=== PATIENT | female | born 1935 | race Caucasian/White ===

== ENCOUNTER 2016-11-11 14:46 | Observation (INO) | payer MEDICARE ==
[2016-11-11] MEDS ORDERED: ONDANSETRON 4 MG/2ML 2 ML VIAL ONE ×2 (15:18→18:33)
--- NOTE | 2016-11-11 16:22 | RAD ---
SHOULDER-RIGHT 2 OR MORE VIEWS History: Fall. Comparison: None. Findings: 3 views of the right humerus were performed demonstrating a comminuted fracture of the proximal right humeral metaphysis. There appears to be a transverse component as well as a mildly displaced greater tuberosity component. The glenohumeral alignment appears to remain appropriate. The shaft of the humerus is slightly angulated in a lateral direction in relationship to the humeral head component. Postsurgical changes are seen within the right axilla. The included right lung field is within expected. Impression: 1. A comminuted, mildly angulated fracture of the proximal right humerus with a mildly displaced greater tuberosity component.
--- NOTE | 2016-11-11 16:24 | RAD ---
HIP - RIGHT 2 VW + AP PELVIS HISTORY: Fall. COMPARISONS: None. FINDINGS: An AP view of the pelvis was performed with AP and frog-leg lateral views of the right hip demonstrating grossly intact osseous structures. The hip joint spaces are symmetric and are relatively well-maintained. The osseous pelvis is appropriate. The sacrum and sacroiliac joints are within expected. Mild atherosclerotic vascular calcification is seen. IMPRESSION: 1. Atherosclerotic vascular calcification. 2. Otherwise negative views of the pelvis and right hip with no definitive fracture visualized.
[2016-11-11] MEDS ORDERED: MORPHINE SULFATE 4 MG/ML SYRINGE ONE (18:33)
[2016-11-11 19:03] LABS: ABSOLUTE NEUTROPHIL COUNT 6.1 K/mm3 (1.8-7.7); BASO # 0.1 K/mm3 (0.0-0.2); BASO % 0.6 % (0.2-1.0); EOS # 0.1 (0.0-0.5); EOS % 0.8 % (0.9-2.9); HEMATOCRIT 42.3 % (37.0-47.0); HEMOGLOBIN 13.5 gm/l (12.0-16.0); IMM NEUT% 0.5 % (0-1); LYMPH # 1.1 (1.0-4.8); LYMPH % 14.1 % (15-45); MEAN CORPUSCULAR HEMOGLOBIN 28.7 pg (27.0-31.0); MEAN CORPUSCULAR HGB CONC 31.9 g/dl (33.0-37.0); MEAN PLATELET VOLUME 12.4 fl (7.4-10.4); MONO # 0.4 (0.0-0.8); MONO % 4.9 % (4-12); NEUT % 79.1 % (43-75); PLATELET COUNT 126 K/mm3 (130-400); RED CELL DISTRIBUTION WIDTH 12.3 % (11.5-14.5)
[2016-11-11 19:16] LABS: ALB/GLOB RATIO 1.3 (>1.0); ALBUMIN 3.9 gm/dL (3.5-5.7); CALCIUM 9.4 mg/dL (8.6-10.3)
[2016-11-11] MEDS ORDERED: PNEUMOCOCCAL 23-VAL P-SAC VAC 0.5 ML VIAL IM V ONE (19:35)
[2016-11-11 19:45] VITALS: BMI 38.0
[2016-11-11] MEDS ORDERED: BISACODYL 5 MG TABLET.EC PO PRN (21:34)
[2016-11-11] MEDS ORDERED: BISACODYL 10 MG SUP PR PRN (21:34)
[2016-11-11] MEDS ORDERED: SODIUM CHLORIDE 0.9% 100 ML IV PRN (21:34)
[2016-11-11] MEDS ORDERED: BLISTEX LIPSTICK 1 EACH TP PRN (21:34)
[2016-11-11] MEDS ORDERED: MAGNESIUM HYDROXIDE 30 ML UDCUP PO PRN (21:34)
[2016-11-11] MEDS ORDERED: MENTHOL/CETYLPYRD 1 EACH LOZENGE PO PRN (21:34)
[2016-11-11] MEDS ORDERED: ACETAMINOPHEN 325 MG TABLET PO PRN (21:34)
[2016-11-11] MEDS ORDERED: ONDANSETRON 4 MG/2ML 2 ML VIAL IV PRN (21:36)
[2016-11-11] MEDS: INSULIN ASPART (DOSE) 100 UNITS/1 ML SUB-Q PRN (22:36)
[2016-11-11] MEDS: PANTOPRAZOLE SODIUM 40 MG VIAL IV SCH (22:37)
[2016-11-11] MEDS: KETOROLAC TROMETHAMINE 15 MG/ML VIAL IV PRN (22:38)
[2016-11-12] MEDS: MORPHINE SULFATE 2 MG/ML SYRINGE IV PRN ×4 (00:10→17:39)
--- NOTE | 2016-11-12 08:05 | HP ---
Chantal Andersen [id number] DATE OF ADMISSION: 11/11/2016 CHIEF COMPLAINT: Right humeral fracture. HISTORY OF PRESENT ILLNESS: The patient is an 81-year-old female with a history of Alzheimer's who fell today fracturing her right proximal humerus. Family indicates patient is unable to be cared for at their home anymore at this time as emergency room was not able to get her up to walk, so hospitalist service requested to admit for consideration for placement. Daughter reports that she had gotten the patient up to the bathroom and she had closed the door and then had fallen. Her daughter was able to attend to her immediately, so she was not laying on the floor a long time. She had arm pain, but no other significant pains. PAST MEDICAL HISTORY: Remarkable for Mullins's palsy, history of chronic renal insufficiency is listed although, her creatinine is 1.1 with an estimated GFR of 48 suggesting around a stage III chronic kidney disease, history of coronary artery disease with balloon angioplasty a number of years ago, history of dementia, diabetes mellitus type 2, history of ductal breast cancer, status post lumpectomy and sentinel lymph node biopsy, dyslipidemia, hypertension, macular degeneration, and osteoporosis. She has had previous history of paroxysmal supraventricular tachycardia, and a previous history of thrombocytopenia, and carpal tunnel surgery. 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 ALLERGIES: No known drug allergies are listed, but on further review HER FAMILY THINKS SHE MAY BE ALLERGIC TO SULFA WHICH IS SUGGESTED IN SOME OLD RECORDS. MEDICATIONS: 1. Lorazepam 0.5 mg by mouth twice daily as needed although, daughter indicates they only give it to her at bedtime. 2. Wellbutrin SR 100 mg at bedtime. 3. Metformin 500 mg one half by mouth daily. 4. Melatonin 5 mg two by mouth at bedtime. 5. Glyburide 5 mg daily. 6. Lisinopril 20 mg daily. 7. Aspirin 81 mg daily. 8. Centrum Silver daily. 9. Metoprolol tartrate 100 mg by mouth twice daily. SOCIAL HISTORY: She lives at home with her . They have been 65 years. Two kids although, son is . Daughter previously worked at [employer]. No smoking. No alcohol. No particular yarsanism preference. She has a dog named Bertha. FAMILY HISTORY: Noncontributory. REVIEW OF SYSTEMS: Eyes: She wears glasses. Ears are okay. Nose is okay. Mouth is okay. She does have dentures. Neck: No complaints. Breathing is okay. No heart complaints. She did angioplasty about 18 years ago. Stomach is okay. No constipation problems. No diarrhea. She does take a vegetable laxative. She does have urinary incontinence if she waits to long, so her daughters are using Depends. Legs have been okay. Arms have been okay. No fractures. Skin: She has had some skin irritation in the skin folds, so she has used what sounds like clotrimazole and [place]. Memory has decreased consistent with dementia and she is do not resuscitate. PHYSICAL EXAMINATION: GENERAL: Nontoxic demented female who is pleasant. VITAL SIGNS: Through the emergency room 157/81, heart rate 66, respirations 18, 97.8 temperature, 92% saturation on room air. HEENT: Head is normocephalic, atraumatic. Eyes unremarkable. Left side of face has some mild palsy still noted. The right side shows some very well healed post Mohs surgery changes. Eyes are normal. Ears are normal. Nose is normal. Mouth has dentures. LUNGS: Clear to auscultation bilaterally. HEART: Regular rate and rhythm without murmur. ABDOMEN: Soft, nontender, nondistended, but patient seems quite uncomfortable as she is attempting to stop me from examining her abdomen and she attempts to move her broken arm when doing this. EXTREMITIES: Right arm is a sling, but she has disassembled it. Legs are unremarkable. No edema noted. No ulceration noted on the feet. Onychomycosis and slight flaking is noted on the feet. GENITOURINARY: Deferred. NEURO: Patient has some facial asymmetry noted related to Mullins's palsy, but no other focal deficits other than poor memory. LABORATORY: White count 7.7, hemoglobin 13.5, platelets 126. Sodium 132, potassium 4.1, chloride 98, CO2 24, BUN 15, creatinine 1.1, glucose 292. LFT's normal. Calcium 9.4. DIAGNOSTIC: Shoulder, fracture of the proximal right humerus. Hip and pelvis, no acute changes. Vascular calcification seen. ASSESSMENT AND PLAN: 1. We will follow with the right humeral fracture. Reviewed with Dr. Neumann. he would recommend a sling for her, however, patient's dementia will be a significant factor in this as she has disassembled the sling. 2. Dementia, Alzheimer's type. Anticipate need for placement if she is unable to be cared for at home. 3. Incontinence. Continue brief's. 4. Placement, physical therapy and occupational therapy, and appreciate rn medicare work. 5. Do not resuscitate status. Discussed with daughter today. 6. Type 2 diabetes mellitus, uncertain control. We will continue on her current medications and use capillary blood sugars with sliding scale insulin. 7. Mood concerns. We will continue on current medicines at this time. 8. Venous thrombosis prophylaxis. Anticipate patient is low risk for deep venous thrombosis and hope to keep her ambulating. JOB: [id number] CC: Dr. Mcdaniel
[2016-11-12] MEDS: KETOROLAC TROMETHAMINE 15 MG/ML VIAL IV PRN (09:24)
[2016-11-12] MEDS: POLYETHYLENE GLYCOL 3350 17 G POWD.SUSP PO SCH (09:24)
[2016-11-12] MEDS: DOCUSATE SODIUM 100 MG CAPSULE PO SCH ×2 (09:24→21:45)
[2016-11-12] MEDS: INSULIN ASPART (DOSE) 100 UNITS/1 ML SUB-Q PRN ×3 (09:45→22:15)
[2016-11-12] MEDS ORDERED: LORAZEPAM 0.5 MG TABLET PO PRN (13:41)
[2016-11-12] MEDS ORDERED: BUPROPION HCL 75 MG TABLET PO ONE (14:30)
[2016-11-12] MEDS ORDERED: BUPROPION HCL 100 MG TABLET PO ONE (14:30)
--- NOTE | 2016-11-12 18:08 | PDOC43 ---
- Subjective Chief Complaint: Right arm pain Confused and uncooperative. Endorses arm pain. - Objective Vital Signs Temperature 98.3 F 11/12/16 15:00 Pulse Rate 89 11/12/16 15:00 Respiratory Rate 18 11/12/16 15:00 Blood Pressure 115/75 11/12/16 15:00 O2 Saturation by Pulse Oximetry 96 11/12/16 15:00 Oxygen Delivery Method Room Air Oxygen Flow Rate 0 Intake and Output 11/11/16 11/12/16 11/13/16 06:59 06:59 06:59 Output Total 44 Balance -44 General: Alert, Moderate Distress, No Oriented x3, No Cooperative HEENT: Mucous membr. moist/pink Lungs: Clear to Auscultation Bilaterally Cardiovascular: Regular Rate and Rhythm Abdomen: Soft, Normal Bowel Sounds, No Tenderness, No Masses Extremities: Pulses Diminished but Palpable, No Edema Skin: Normal Color Psych/Mental Status: Anxious Laboratory 11/11/16 18:35 11/11/16 18:35 11/12/16 11/12/16 11/11/16 17:20 09:25 22:31 MCHC Estimated GFR POC Capillary Glucose 280 H 239 H 283 H 11/11/16 18:35 MCHC 31.9 L Estimated GFR 48 L POC Capillary Glucose Current Medications: Current meds reviewed in EMR. - Problems: Assessment/Plan (1) Right humeral fracture Qualifiers: Encounter type: initial encounter Humerus Location: proximal Fracture type: closed Fracture alignment: displaced Status: Acute Assessment/Plan: Non-surgical management. Sling would help but patient will not leave in place due to her dementia. Schedule pain medication. (2) CAD (coronary artery disease) Qualifiers: Coronary Disease-Associated Artery/Lesion type: [place] artery [place] vs. transplanted heart: [place] heart Associated angina: without angina Qualifier Code: (I25.10) Atherosclerotic heart disease of [place] coronary artery without angina pectoris Status: ChronicAssessment/Plan: No evidence of acute exacerbation. (3) CKD (chronic kidney disease) stage 3, GFR 30-59 ml/min Status: ChronicAssessment/Plan: stable (4) Dementia Qualifiers: Dementia type: Alzheimer's disease Alzheimer's disease onset: late- onset Dementia behavioral disturbance: with behavioral disturbance Qualifier Code: (G30.1) Alzheimer's disease with late onset Status: Chronic Assessment/Plan: Continue usual medications, haloperidol if necessary. (5) Diabetes mellitus, type II Qualifiers: Diabetes mellitus complication status: with kidney complications Diabetes mellitus complication detail: with chronic kidney disease Diabetes mellitus fci insulin use: without oil heaterman use Chronic kidney disease stage: stage 3 (moderate) Qualifier Code: (E11.22) Type 2 diabetes mellitus with diabetic chronic kidney disease Status: ChronicAssessment/Plan : BG in the high 200s, adequate control given clinical situation. (6) Dyslipidemia Status: ChronicAssessment/Plan: stable (7) Hypertension Status: ChronicAssessment/Plan: well controlled (8) Osteoporosis Status: ChronicAssessment/Plan: contributing to fracture, start Ca++/Vit D (9) History of malignant neoplasm of breast Status: ChronicAssessment/Plan: in remission. VTE Prophylaxis: not indicated. Disposition: to SNF tomorrow.
[2016-11-12] MEDS ORDERED: OXYCODONE HCL 5 MG TABLET PO PRN (18:10)
[2016-11-12] MEDS ORDERED: ACETAMINOPHEN 325 MG TABLET PO SCH (18:15)
[2016-11-12] MEDS ORDERED: OXYCODONE HCL 5 MG TABLET PO SCH (18:15)
[2016-11-12] MEDS ORDERED: LORAZEPAM 0.5 MG TABLET PO SCH (21:00)
[2016-11-12] MEDS ORDERED: BUPROPION HCL 100 MG PO SCH (21:00)
[2016-11-12] MEDS ORDERED: MELATONIN 3 MG TABLET PO SCH (21:00)
[2016-11-12] MEDS: ACETAMINOPHEN 325 MG TABLET PO SCH (21:44)
[2016-11-12] MEDS: CALCIUM CARBONATE 600 MG/VITAMIN D3 400 UNIT/TABLET PO SCH (21:45)
[2016-11-12] MEDS: PANTOPRAZOLE SODIUM 40 MG VIAL IV SCH (21:45)
[2016-11-12] MEDS: OXYCODONE HCL 5 MG TABLET PO SCH (21:45)
[2016-11-12] MEDS: METOPROLOL TARTRATE 100 MG TABLET PO SCH (22:09)
[2016-11-13] MEDS ORDERED: DIPHENHYDRAMINE HCL 50 MG/1 ML VIAL IV PRN (05:47)
[2016-11-13] MEDS: OXYCODONE HCL 5 MG TABLET PO SCH (05:56)
[2016-11-13] MEDS: ACETAMINOPHEN 325 MG TABLET PO SCH (05:56)
[2016-11-13 08:04] VITALS: BP 134/83
[2016-11-13] MEDS: METOPROLOL TARTRATE 100 MG TABLET PO SCH (08:06)
[2016-11-13] MEDS: CALCIUM CARBONATE 600 MG/VITAMIN D3 400 UNIT/TABLET PO SCH (08:07)
[2016-11-13] MEDS: DOCUSATE SODIUM 100 MG CAPSULE PO SCH (08:07)
[2016-11-13] MEDS: POLYETHYLENE GLYCOL 3350 17 G POWD.SUSP PO SCH (08:07)
[2016-11-13] MEDS: INSULIN ASPART (DOSE) 100 UNITS/1 ML SUB-Q PRN (08:15)
[2016-11-13] MEDS ORDERED: [UNRECOGNIZED DRUG - OTHER] PO SCH (09:00)
[2016-11-13] MEDS ORDERED: LUT PO SCH (09:00)
[2016-11-13] MEDS ORDERED: GLYBURIDE 5 MG TABLET PO SCH (09:00)
[2016-11-13] MEDS ORDERED: MULTIVIT MIN PO SCH (09:00)
[2016-11-13] MEDS ORDERED: METFORMIN XR 500 MG TAB.XL PO SCH (09:00)
[2016-11-13] MEDS ORDERED: LISINOPRIL 20 MG TABLET PO SCH (09:00)
[2016-11-13] MEDS ORDERED: LYCOPENE PO SCH (09:00)
[2016-11-13] MEDS ORDERED: ASPIRIN (ENTERIC COATED) 81 MG TABLET.EC PO SCH (09:00)
[2016-11-13] MEDS ORDERED: HYDROCODONE/ACETAMINOPHEN 5/325MG TABLET PO PRN (10:38)
[2016-11-13] MEDS ORDERED: HYDROCODONE/ACETAMINOPHEN 5/325MG TABLET PO ONE (10:38)
[2016-11-13] MEDS ORDERED: HYDROCODONE/ACETAMINOPHEN 5/325MG TABLET PO SCH (10:45)
--- NOTE | 2016-11-13 10:57 | PDOC5 ---
ADMIT DATE: 11/11/16 DISCHARGE DATE: 11/13/16 ADMISSION DIAGNOSES: right humerus fracture PROCEDURES PERFORMED THIS HOSPITALIZATION: none CONSULTATIONS: OT/PT--appropriate for trial of skilled rehab. HOSPITAL COURSE: This is a 81 year old with dementia who lives at home with her . She had a fall and broke her humerus. She was admitted for pain control and placement. - Exam Vital Signs Temperature 97.1 F 11/13/16 08:00 Pulse Rate 72 11/13/16 08:00 Respiratory Rate 18 11/13/16 08:00 Blood Pressure 134/83 11/13/16 08:00 O2 Saturation by Pulse Oximetry 96 11/13/16 08:00 Oxygen Delivery Method Room Air Oxygen Flow Rate 0 General: Alert, No Oriented x3, No Cooperative HEENT: Mucous membr. moist/pink Lungs: Clear to Auscultation Bilaterally Cardiovascular: Regular Rate and Rhythm Abdomen: Soft, Normal Bowel Sounds, No Tenderness, No Masses Extremities: Pulses Diminished but Palpable, Other (right arm in sling), No Edema Skin: Normal Color Psych/Mental Status: Anxious - Results Laboratory 11/11/16 18:35 11/11/16 18:35 11/13/16 11/12/16 11/12/16 07:59 21:41 17:20 POC Capillary Glucose 260 H 280 H 280 H - Problems:Assessment/Plan (1) Right humeral fracture Qualifiers: Encounter type: initial encounter Humerus Location: proximal Fracture type: closed Fracture alignment: displaced Status: Acute Assessment/Plan: Non-surgical management. Sling would help but patient will not leave in place due to her dementia. Schedule pain medication. (2) CAD (coronary artery disease) Qualifiers: Coronary Disease-Associated Artery/Lesion type: [place] artery [place] vs. transplanted heart: [place] heart Associated angina: without angina Qualifier Code: (I25.10) Atherosclerotic heart disease of [place] coronary artery without angina pectoris Status: ChronicAssessment/Plan: No evidence of acute exacerbation. (3) CKD (chronic kidney disease) stage 3, GFR 30-59 ml/min Status: ChronicAssessment/Plan: stable (4) Dementia Qualifiers: Dementia type: Alzheimer's disease Alzheimer's disease onset: late- onset Dementia behavioral disturbance: with behavioral disturbance Qualifier Code: (G30.1) Alzheimer's disease with late onset Status: Chronic Assessment/Plan: Continue usual medications. (5) Diabetes mellitus, type II Qualifiers: Diabetes mellitus complication status: with kidney complications Diabetes mellitus complication detail: with chronic kidney disease Diabetes mellitus prison insulin use: without prison use Chronic kidney disease stage: stage 3 (moderate) Qualifier Code: (E11.22) Type 2 diabetes mellitus with diabetic chronic kidney disease Status: ChronicAssessment/Plan : BG in the high 200s, adequate control given clinical situation. (6) Dyslipidemia Status: ChronicAssessment/Plan: stable (7) Hypertension Status: ChronicAssessment/Plan: well controlled (8) Osteoporosis Status: ChronicAssessment/Plan: contributing to fracture, start Ca++/Vit D (9) History of malignant neoplasm of breast Status: ChronicAssessment/Plan: in remission. (10) Hives Status: AcuteAssessment/Plan: Reported overnight but now resolved, changed pain med from oxycodone to hydrocodone. (11) Obesity (BMI 30-39.9) Status: ChronicAssessment/Plan: Complicates care as it makes therapy more difficult, increases blood glucose, and limits mobility. - Disposition: Disposition: to SNF today - Discharge Plan Prescriptions: Hydrocodone/Acetaminophen [Hydrocodon-Acetaminophen 5-325] 1 tab PO Q6H PRN #30 PRN Reason: Pain (Breakthrough) Lorazepam [ATIVAN 0.5 MG TABLET (SHF)] 0.5 mg PO BEDTIME PRN #30 tablet PRN Reason: Insomnia Hydrocodone/Acetaminophen [Hydrocodon-Acetaminophen 5-325] 1 each PO Q6H #60 tablet Condition: Fair Disposition: [facility]
--- NOTE | 2016-11-13 11:28 | PDOC43 ---
- Subjective Subjective: Reports Pain Tolerable, Denies Flatus, Denies Chest Pain, Denies Shortness of Breath, Denies Nausea (Pt. has some shoulder pain when right arm is moved.) - Objective Vital Signs Temperature 97.1 F 11/13/16 08:00 Pulse Rate 72 11/13/16 08:00 Respiratory Rate 18 11/13/16 08:00 Blood Pressure 134/83 11/13/16 08:00 O2 Saturation by Pulse Oximetry 96 11/13/16 08:00 Oxygen Delivery Method Room Air Oxygen Flow Rate 0 Laboratory 11/11/16 18:35 11/11/16 18:35 11/13/16 11/12/16 11/12/16 07:59 21:41 17:20 POC Capillary Glucose 260 H 280 H 280 H Active Medication Orders Category Date Time Status Aspirin (Enteric Coated) [Ecotrin] Med 11/13/16 09:00 Active 81 mg PO DAILY Bupropion HCl [Wellbutrin Sr] Med 11/12/16 21:00 Active 100 mg PO BEDTIME Calcium Carbonate/Vitamin D3 Med 11/12/16 21:00 Active 1 each PO TID Diphenhydramine HCl [Benadryl] Med 11/13/16 05:47 Active 25 mg IV Q6H PRN Docusate Sodium [Colace] Med 11/12/16 09:00 Active 100 mg PO BID Glyburide [Diabeta] Med 11/13/16 09:00 Active 5 mg PO DAILY Hydrocodone Bit/Acetaminophen [[place] 5/325] Med 11/13/16 10:45 Active 1 tab PO Q6H Hydrocodone Bit/Acetaminophen [[place] 5/325] Med 11/13/16 10:38 Active 1 tab PO Q6H PRN Insulin Aspart (Dose) [Novolog (Dose)] Med 11/11/16 21:39 Active See Protocol SUB-Q WM/BEDTIME PRN Lip [place] [Blistex] Med 11/11/16 21:34 Active 1 each TP PRN PRN Lisinopril [Prinivil] Med 11/13/16 09:00 Active 20 mg PO DAILY Lorazepam [Ativan] Med 11/12/16 21:00 Active 0.5 mg PO BEDTIME Magnesium Hydroxide [Milk of Magnesia] Med 11/11/16 21:34 Active 30 ml PO DAILY PRN Melatonin Med 11/12/16 21:00 Active 9 mg PO BEDTIME Menthol/Cetylpyridinium [Cepacol] Med 11/11/16 21:34 Active 1 each PO PRN PRN Metformin Xr [Glucophage Xr] Med 11/13/16 09:00 Active 250 mg PO QAM Metoprolol Tartrate [Lopressor] Med 11/12/16 21:00 Active 100 mg PO BID Multivit-Min/FA/Lycopene/Lut [Centrum Silver Tablet] Med 11/13/16 09:00 Active 1 each PO DAILY Ondansetron 4 mg/2ml Vial [Zofran] Med 11/11/16 21:36 Active 4 mg IV Q4H PRN Pantoprazole Sodium [Protonix] Med 11/11/16 21:45 Active 40 mg IV Q24H Polyethylene Glycol 3350 [Miralax] Med 11/12/16 09:00 Active 17 g PO DAILY Sodium Chloride 0.9% 100 ml Med 11/11/16 21:34 Active IV PRN Sodium Chloride 0.9% Flush [Normal Saline 10ml Flush] Med 11/11/16 21:34 Active 10 - 50 ml IV PRN PRN Sodium Chloride 0.9% Flush [Normal Saline 10ml Flush] Med 11/12/16 01:00 Active 10 ml IV Q8HR Intake and Output 11/12/16 11/13/16 11/14/16 06:59 06:59 06:59 Intake Total 350 Output Total 44 101 Balance -44 249 General: Afebrile, No Acute Distress - Right Upper Extremity Motor: Extensor Pollicis Longus: 5/5, Finger Flexors: 5/5, Finger Extensors: 5/5 , Wrist Flexors: 5/5, Wrist Extensors: 5/5 Gross Sensation to Light Touch: Present: Median Nerve, Ulnar Nerve, Radial Nerve Capillary Refill: < 3 Seconds (Limited right shoulder motion. Immobilizer repositioned.) - Additional Comments Spoke with patient's and daughter regarding status. She is being transferred to SNF today. Proceed with non-operative treatment. New shoulder immobilizer repositioned. Has follow up appointment with Dr. Neumann. Appreciate hospitalist involvement.
--- NOTE | 2016-11-13 11:28 | PDOC43 ---
- Subjective Subjective: Reports Pain Tolerable, Denies Flatus, Denies Chest Pain, Denies Shortness of Breath, Denies Nausea, Denies Vomiting, Denies Fever - Objective Vital Signs Temperature 98.4 F 11/12/16 08:44 Pulse Rate 87 11/12/16 08:44 Respiratory Rate 20 11/12/16 08:44 Blood Pressure 154/52 11/12/16 08:44 O2 Saturation by Pulse Oximetry 96 11/12/16 08:44 Oxygen Delivery Method Room Air Oxygen Flow Rate 0 Laboratory 11/11/16 18:35 11/11/16 18:35 11/12/16 11/11/16 11/11/16 09:25 22:31 18:35 MCHC 31.9 L Estimated GFR 48 L POC Capillary Glucose 239 H 283 H Active Medication Orders Category Date Time Status Acetaminophen [Tylenol] Med 11/11/16 21:34 Active 650 mg PO Q6H PRN Bisacodyl [Dulcolax] Med 11/11/16 21:34 Active 10 mg [place] DAILY PRN Bisacodyl [Dulcolax] Med 11/11/16 21:34 Active 5 mg PO DAILY PRN Docusate Sodium [Colace] Med 11/12/16 09:00 Active 100 mg PO BID Insulin Aspart (Dose) [Novolog (Dose)] Med 11/11/16 21:39 Active See Protocol SUB-Q WM/BEDTIME PRN Lip [place] [Blistex] Med 11/11/16 21:34 Active 1 each TP PRN PRN Magnesium Hydroxide [Milk of Magnesia] Med 11/11/16 21:34 Active 30 ml PO DAILY PRN Menthol/Cetylpyridinium [Cepacol] Med 11/11/16 21:34 Active 1 each PO PRN PRN Morphine Sulfate Med 11/11/16 21:36 Active 2 mg IV Q2H PRN Ondansetron 4 mg/2ml Vial [Zofran] Med 11/11/16 21:36 Active 4 mg IV Q4H PRN Pantoprazole Sodium [Protonix] Med 11/11/16 21:45 Active 40 mg IV Q24H Polyethylene Glycol 3350 [Miralax] Med 11/12/16 09:00 Active 17 g PO DAILY Sodium Chloride 0.9% 100 ml Med 11/11/16 21:34 Active IV PRN Sodium Chloride 0.9% Flush [Normal Saline 10ml Flush] Med 11/11/16 21:34 Active 10 - 50 ml IV PRN PRN Sodium Chloride 0.9% Flush [Normal Saline 10ml Flush] Med 11/12/16 01:00 Active 10 ml IV Q8HR Intake and Output 11/11/16 11/12/16 11/13/16 06:59 06:59 06:59 Output Total 44 Balance -44 General: Afebrile, No Acute Distress Skin: Normal Color, Warm, Dry, Intact Neurological: Grossly Intact, Alert, Oriented x 4, Normal Speech Psych/Mental Status: Normal Affect, Normal Mood - Left Upper Extremity Motor: Extensor Pollicis Longus: 4/5, Finger Flexors: 5/5, Finger Extensors: 5/5 , Wrist Flexors: 5/5, Wrist Extensors: 5/5, Intrinsics: 5/5 Gross Sensation to Light Touch: Present: Median Nerve, Ulnar Nerve, Radial Nerve Capillary Refill: < 3 Seconds (Patient wearing shoulder immobilizer supporting right upper extremity. Pain tolerable insofar as she does not attempt to move right arm.) - Additional Comments Spoke with patient's regarding status. She is being transferred to SNF today. Proceed with non-operative treatment. Has follow up appointment with Dr. Neumann. Appreciate hospitalist involvement.
--- NOTE | 2016-11-15 10:30 | CONS ---
Chantal SANTOS [id number] : 1935 ORTHOPEDIC CONSULTATION DATE OF ADMISSION: November 11, 2016 CHIEF COMPLAINT: "My mom fell and broke her right arm." HISTORY OF PRESENT ILLNESS: The patient is an 81-year-old female who is right-hand dominant who has advanced Alzheimer's disease and whose daughter used to be an employee of our office her name is Cinthia, who sustained a fall at home, resulting in a four-part proximal humerus fracture. I was asked to see her in consultation. The patient apparently got up to go to the bathroom and closed the door and had fallen, this was not witnessed. She is here today with her both the patient's daughter and live with the patient. The patient is alert and oriented times 0. She is somewhat anxious here in the hospital bed. PAST MEDICAL/SURGICAL HISTORY: Significant for: 1. Chronic renal insufficiency. 2. Coronary artery disease. 3. Breast cancer. 4. Dyslipidemia. 5. Hypertension. 6. Macular degeneration. 7. Osteoporosis. 8. As well as Alzheimer's disease. ALLERGIES: The patient may have been SULFA allergy. SOCIAL HISTORY: She lives at home with her who she has been to for 65 years. She has two kids, her son and as I said Cinthia used to work in her office. She does not smoke and does not drink alcohol. MEDICATIONS: Include: 1. Wellbutrin. 2. Metformin. 3. Lisinopril. 4. Aspirin. 5. Metoprolol. 6. Lorazepam. REVIEW OF SYSTEMS: Overall the patient has had some problems with urinary incontinence and uses Depends, but otherwise no recent fevers, chills. Her memory has been decreasing and she does have an order that she is a DO NOT RESUSCITATE/DO NOT INTUBATE. PHYSICAL EXAM: GENERAL: The patient is alert and oriented times zero, in no acute distress. She is sitting in a sling although after I adjust it she takes this off. VITAL SIGNS: She is afebrile. Vital signs are stable. LUNGS: Clear to auscultation bilaterally. HEART: Regular rate. EXTREMITIES: Her right arm is in a sling. She has gross motion of her EPL, finger flexors, finger extensors, wrist flexors and extensors and intrinsics. If I try to move the right shoulder she does have pain. I do not appreciate any bruising in this area. She has a 2+ radial pulse on the right side. The patient has gross circumferential motion of the left side, gross motion of the left side and grossly neurovascular intact on the left side compared to the right. LABORATORIES: White blood cell count is 7.7. Hemoglobin 13, platelets 126. Sodium 132, potassium 4.1, chloride 98, bicarbonate 24, BUN 15, creatinine 1.1. IMAGIN. X-rays of the right shoulder demonstrate a four-part comminuted fracture. The articular surface is now facing the acromion. There is collapse and displacement of both tuberosity. 2. X-rays of the hip or performed on November 11, 2016. No gross abnormalities were appreciated of any of the bony structures. ASSESSMENT AND PLAN: The patient is an 81-year-old female with end-stage dementia with a four-part proximal humerus fracture. Based on her inability to follow commands and noncompliance I think that she would be a poor surgical candidate. I spoke to the family and her daughter about this. I think that she should remain nonweightbearing on the right upper extremity. I recommended that she continue to wear a sling if possible and see us back in the office probably two weeks after discharge to see how she is progressing. Job [id number] cc: Fly Neumann M.D.
== END 2016-11-13 11:58 ==
LOC: ED 14:46 → MS 18:01
PROVIDERS: ADMIT Family Medicine; ATTEND Orthopaedic Surgery
DX: S42.251A Displaced fracture of greater tuberosity of right humerus, initial encounter for closed fracture (principal); W19.XXXA Unspecified fall, initial encounter; G30.9 Alzheimer's disease, unspecified; F02.80 Dementia in other diseases classified elsewhere, unspecified severity, without behavioral disturbance, psychotic disturbance, mood disturbance, and anxiety; R32 Unspecified urinary incontinence; Z66 Do not resuscitate; E11.9 Type 2 diabetes mellitus without complications; I25.10 Atherosclerotic heart disease of native coronary artery without angina pectoris; E11.22 Type 2 diabetes mellitus with diabetic chronic kidney disease; I12.9 Hypertensive chronic kidney disease with stage 1 through stage 4 chronic kidney disease, or unspecified chronic kidney disease; N18.3 Chronic kidney disease, stage 3 (moderate); M81.0 Age-related osteoporosis without current pathological fracture; L50.9 Urticaria, unspecified; E66.9 Obesity, unspecified; Z68.30 Body mass index [BMI] 30.0-30.9, adult; Z23 Encounter for immunization
CPT/HCPCS: 90732; 85025; 80053; 73502; 73030; 97161; 97165; 96375; 96376; 99285 ×2; 96374; A9270 ×16; J1200; J2270 ×5; C9113 ×2; J1885 ×2; J2405 ×2; J1815 ×5

== ENCOUNTER 2016-11-28 17:19 | Inpatient (IN) | payer MEDICARE ==
[2016-11-28] MEDS ORDERED: ONDANSETRON 4 MG/2ML 2 ML VIAL ONE (18:11)
[2016-11-28] MEDS ORDERED: HYDROMORPHONE HCL 1 MG/ML SYRINGE ONE (18:12)
--- NOTE | 2016-11-28 18:52 | RAD ---
LEFT HIP AND AP PELVIS SERIES HISTORY: Hip fracture.. Frontal view of the pelvis with frontal and crosstable lateral views of the left hip. PELVIC RING: Grossly intact. HIP ALIGNMENT: Grossly unremarkable. HIP JOINT SPACES: Preserved. FRACTURE: Mildly comminuted subcapital fracture of the left proximal femur with associated impaction and elevation of the femoral shaft. Associated mild varus angulation. CALCIFICATIONS: Moderate aortoiliac atherosclerotic calcifications.. IMPRESSION: Mildly angulated, mildly impacted, subcapital left femoral fracture with associated comminution.
--- NOTE | 2016-11-28 18:57 | RAD ---
PORTABLE CHEST RADIOGRAPH HISTORY: Preoperative assessment for hip fracture. Frontal portable chest radiograph dated 11/28/2016. COMPARISON: None. FINDINGS: LUNG VOLUMES: Diminished. FOCAL AIRSPACE OPACITY: No gross airspace consolidation. PLEURAL EFFUSION: None. CARDIOMEDIASTINAL SILHOUETTE: Moderate cardiomegaly, perhaps exaggerated by hypoventilation. POSTPROCEDURAL CHANGE: Postsurgical change of right-sided mammary soft tissues. PNEUMOTHORAX: None identified. OSSEOUS STRUCTURES: No grossly destructive lesions. IMPRESSION: Low lung volumes. Cardiomegaly without vascular congestion or airspace disease. Postprocedural change of right mammary soft tissues.
[2016-11-28 19:32] LABS: ABSOLUTE NEUTROPHIL COUNT 8.6 K/mm3 (1.8-7.7); BASO # 0.1 K/mm3 (0.0-0.2); BASO % 0.6 % (0.2-1.0); EOS # 0.2 (0.0-0.5); EOS % 1.4 % (0.9-2.9); HEMATOCRIT 35.2 % (37.0-47.0); HEMOGLOBIN 11.7 gm/l (12.0-16.0); IMM NEUT # 0.1 K/mm3 (0-0.2); IMM NEUT% 1.1 % (0-1); LYMPH # 1.2 (1.0-4.8); LYMPH % 10.7 % (15-45); MEAN CELL VOLUME 86.9 fl (81.0-99.0); MEAN CORPUSCULAR HEMOGLOBIN 28.9 pg (27.0-31.0); MEAN CORPUSCULAR HGB CONC 33.2 g/dl (33.0-37.0); MEAN PLATELET VOLUME 12.1 fl (7.4-10.4); MONO # 0.8 (0.0-0.8); MONO % 7.3 % (4-12); NEUT % 78.9 % (43-75); PLATELET COUNT 213 K/mm3 (130-400)
[2016-11-28 19:49] LABS: ALB/GLOB RATIO 0.9 (>1.0); ALBUMIN 3.3 gm/dL (3.5-5.7); CALCIUM 9.6 mg/dL (8.6-10.3)
[2016-11-28] MEDS ORDERED: MAGNESIUM HYDROXIDE 30 ML UDCUP PO PRN (20:01)
[2016-11-28] MEDS ORDERED: HYDROMORPHONE HCL 2 MG/ML SYRINGE IV PRN ×2 (20:01→20:33)
[2016-11-28] MEDS ORDERED: BISACODYL 5 MG TABLET.EC PO PRN (20:01)
[2016-11-28] MEDS ORDERED: BLISTEX LIPSTICK 1 EACH TP PRN (20:01)
[2016-11-28] MEDS ORDERED: SODIUM CHLORIDE 0.9% 100 ML IV PRN (20:01)
[2016-11-28] MEDS ORDERED: ACETAMINOPHEN 325 MG TABLET PO PRN (20:01)
[2016-11-28] MEDS ORDERED: MENTHOL/CETYLPYRD 1 EACH LOZENGE PO PRN (20:01)
[2016-11-28] MEDS ORDERED: BISACODYL 10 MG SUP PR PRN (20:01)
[2016-11-28] MEDS ORDERED: HYDROMORPHONE HCL 0.5 MG/0.5 ML SYRINGE IV PRN ×2 (20:06→20:33)
[2016-11-28] MEDS ORDERED: HYDROMORPHONE HCL 1 MG/ML SYRINGE IV PRN (20:06)
[2016-11-28] MEDS: HYDROMORPHONE HCL 1 MG/ML SYRINGE IV PRN ×2 (20:15→22:36)
[2016-11-28] MEDS ORDERED: PUMP TUBING ONE (20:23)
[2016-11-28] MEDS ORDERED: LORAZEPAM 2 MG/ML 1ML SDV IV PRN (20:36)
[2016-11-28] MEDS: LACTATED RINGERS 1,000 ML IV SCH (20:38)
[2016-11-28] MEDS ORDERED: INSULIN GLARGINE (DOSE) 100 UNITS/ML UNIT SUB-Q SCH (21:00)
[2016-11-28] MEDS ORDERED: BUPROPION 100 MG PO SCH (21:00)
[2016-11-28] MEDS ORDERED: METOPROLOL TARTRATE 100 MG TABLET PO SCH (21:00)
[2016-11-28] MEDS ORDERED: METOPROLOL TARTRATE 50 MG TABLET PO SCH (21:07)
[2016-11-28 21:28] VITALS: BMI 33.1
[2016-11-28] MEDS: DOCUSATE SODIUM 100 MG CAPSULE PO SCH (21:59)
[2016-11-28] MEDS ORDERED: ONDANSETRON 4 MG/2ML 2 ML VIAL IV PRN (22:00)
[2016-11-28] MEDS: INSULIN ASPART (DOSE) 100 UNITS/1 ML SUB-Q PRN (22:31)
[2016-11-28 23:08] LABS: SPECIFIC GRAVITY 1.025 (1.001-1.030); URINE BILIRUBIN NEGATIVE (NEGATIVE); URINE BLOOD NEGATIVE (NEGATIVE); URINE GLUCOSE (UA) 2+ (NEGATIVE); URINE LEUKOCYTE ESTERASE NEGATIVE (NEGATIVE); URINE NITRITE NEGATIVE (NEGATIVE); URINE PROTEIN NEGATIVE (NEGATIVE); URINE UROBILINOGEN NORMAL (0-1 mg/dl)
[2016-11-28 23:09] LABS: URINE APPEARANCE TURBID; URINE COLOR LIGHT YELLOW
[2016-11-28 23:16] LABS: URINE BACTERIA 4+; URINE EPITHELIAL CELLS RARE /hpf; URINE RBC 0-2 /hpf; URINE WBC 0-2 /hpf
[2016-11-28 23:17] LABS: URINE AMORPHOUS SEDIMENT 2+
[2016-11-29] MEDS: HYDROMORPHONE HCL 1 MG/ML SYRINGE IV PRN ×8 (03:09→23:21)
[2016-11-29] MEDS: LACTATED RINGERS 1,000 ML IV SCH ×3 (04:10→17:34)
[2016-11-29 05:47] LABS: ABSOLUTE NEUTROPHIL COUNT 6.6 K/mm3 (1.8-7.7); BASO # 0.1 K/mm3 (0.0-0.2); BASO % 0.8 % (0.2-1.0); EOS # 0.2 (0.0-0.5); EOS % 2.2 % (0.9-2.9); HEMATOCRIT 33.1 % (37.0-47.0); HEMOGLOBIN 10.4 gm/l (12.0-16.0); IMM NEUT # 0.1 K/mm3 (0-0.2); LYMPH # 1.3 (1.0-4.8); LYMPH % 14.7 % (15-45); MEAN CELL VOLUME 91.9 fl (81.0-99.0); MEAN CORPUSCULAR HEMOGLOBIN 28.9 pg (27.0-31.0); MEAN CORPUSCULAR HGB CONC 31.4 g/dl (33.0-37.0); MEAN PLATELET VOLUME 12.1 fl (7.4-10.4); MONO # 0.8 (0.0-0.8); NEUT % 72.3 % (43-75); PLATELET COUNT 167 K/mm3 (130-400)
--- NOTE | 2016-11-29 07:04 | HP ---
YANNI SANTOS [id number] DATE OF ADMISSION: November 28, 2016 CHIEF COMPLAINT: Left hip pain. HISTORY OF PRESENT ILLNESS: The patient is an 81-year-old female with advanced dementia brought to the [facility] Emergency Department by ambulance after x-rays showed a left femur fracture. Reportedly she has been having pain in the area for the last couple of days after a fall, but the films could not be interpreted until today. She was evaluated in the emergency department and found to have a left subcapital femur fracture with mild varus angulation and was referred to the hospitalist service for admission and medical stabilization prior to orthopedic correction of the fracture. Dr. Neumann, I believe, was consulted in the emergency department. Patient has advanced dementia is essentially nonverbal and unable to provide any history. By report from the daughter, she has been having some hip pain for the last 48 hours. There is no paperwork from her memory care unit available for review. Medication record is on the way by fax. REVIEW OF SYSTEMS: Review of systems is therefore not possible. PAST MEDICAL HISTORY: Is significant for: 1. Hospitalization overnight on November 11, 2016 of this year after a right humerus fracture occurred at home. She has been in a memory care unit at [facility] ever since. 2. She has a history of adult onset diabetes complicated by chronic stage 3 kidney disease. She has been on insulin for the last several weeks. 3. She has a history of coronary artery disease with a balloon angioplasty performed a number of years ago, but the records are not available. 4. She has had a history of ductal breast cancer status post lumpectomy. 5. Chronic essential hypertension. 6. Dyslipidemia, 7. Macular degeneration. 8. Paroxysmal supraventricular tachycardia. 9. Osteoporosis. 10. She has had some lumbar disc disease as well. 11. 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 PAST SURGICAL HISTORY: Significant for: 1. Right breast lumpectomy and sentinel lymph node biopsy, unknown year. 2. She had a left total knee arthroplasty, unknown year. 3. Lumbar discectomy. 4. Carpal tunnel surgery. 5. section times two. 6. Total abdominal hysterectomy. 7. Enterocele repair. 8. Mohs skin surgery removal of a basal cell carcinoma from the right side of her face. The dates are not available. ALLERGIES: DOCUMENTED TO SULFA IN HER MEDICAL RECORD. CURRENT MEDICATIONS: Include: 1. Enteric coated aspirin 81 mg daily. 2. Calcium carbonate with vitamin D 600/400 units three times daily. 3. Centrum Silver once daily. 4. Colace 100 mg twice daily. 5. Vicodin 5/325 scheduled every six hours. 6. MiraLax 17 g scheduled once daily. 7. Lisinopril 20 mg once daily. 8. Lorazepam 0.5 mg at bedtime as needed for insomnia. 9. Melatonin 10 mg at bedtime. 10. Hydrochlorothiazide 12.5 mg daily. 11. Metformin 500 mg twice daily. 12. Lopressor 50 mg twice daily. 13. Lorazepam 0.5 mg once daily at 4:00 p.m. scheduled. 14. Wellbutrin XL 100 mg every morning. 15. She also has various as needed medications. 16. Ketoconazole 2% cream applied to the skin under the breast daily to prevent yeast. FAMILY HISTORY: Is not contributory. SOCIAL HISTORY: Patient was living with her in her own home until several weeks ago after she broke her arm. She is now in [facility]. She has been to her for 65 years. They had two children, but their son is and their daughter is actively involved in their care. The patient is a nonsmoker. No history of alcohol use or particular advent preference. Her primary care provider has been Dr. Wilton Mcdaniel. CODE STATUS: DO NOT RESUSCITATE. PHYSICAL EXAMINATION: VITAL SIGNS: Her vital signs in the emergency department showed a blood pressure 120/45, pulse of 98, respirations 14, oxygen saturation 95% on room air. Weight and body mass index are both pending. GENERAL: This is an obese, elderly female who is nonverbal who screams at times. It is unclear if she is in pain. HEENT: Shows some left-sided facial weakness. Pupils are equal, round and reactive to light. Extraocular movements are intact. No oral lesions are present. NECK: Is supple without lymphadenopathy or thyromegaly. CHEST: Lungs are clear to auscultation bilaterally. CARDIOVASCULAR: Exam reveals a regular rate and rhythm without a murmur. ABDOMEN: Is obese, soft, nontender, nondistended with positive bowel sounds. PELVIC: Exam is deferred. RECTAL: Exam is deferred. EXTREMITIES: Show no peripheral edema. She has a small scab over the right knee measuring about 2 x 1 cm. She has a well-healed surgical scar over the left knee. Dorsalis pedis pulses are 2+ in both feet. Her right arm is in a sling. There is some bruising and ecchymosis around the humerus. NEUROLOGIC: Exam is otherwise nonfocal. DIAGNOSTIC IMAGING STUDIES: 1. Included a hip and pelvis x-ray showing a mildly angulated, mildly impacted subcapital left femur fracture with associated comminution. 2. Chest x-ray shows a hypoventilatory exam with some cardiomegaly. LABORATORY STUDIES: Included a CBC with a white count of 10.9, hemoglobin of 11.7, platelet count of 213,000. Chemistry profile shows sodium 129, potassium 4.4, creatinine of 1.1, glucose 305, AST 55, ALT 28, total bilirubin 0.6, albumin 3.3, globulin 3.6. A urinalysis has not yet been collected. ELECTROCARDIOGRAM: An electrocardiogram shows sinus tachycardia with minimal ST depression. ASSESSMENT AND PLAN: 1. Patient has an acute subcapital left femur fracture. We will defer to the orthopedic surgery service for management of this. 2. She has advanced senile dementia. 3. She has a chronic left Mullins's palsy. 4. She has a history of adult onset diabetes with poor control. 5. She has coronary artery disease believe to be stable. She has chronic stage 3 kidney disease also stable. 6. She has mild hyponatremia. 7. She has a history of a fall. 8. We will be checking a urinalysis. 9. We will also check a troponin. We will get a culture of her urine if indicated. 10. I think at this point, she is medically stable to proceed with operative treatment of her fracture, and the hospitalist service will follow the patient postoperative. 11. Anticipate she will either go back to memory care or to a long term facility. 12. Further treatment and recommendations will depend on her hospital course. cc: Wilton Mcdaniel M.D. Padilla Dowling M.D. Fly Neumann M.D.
--- NOTE | 2016-11-29 07:38 | PDOC43 ---
- Subjective Chief Complaint: Left hip pain Subjective: Reports Other (reportedly screams out occasionally at baseline, resting comfortably now.) - Objective Vital Signs Temperature 98.8 F 11/29/16 02:00 Pulse Rate 121 11/29/16 02:00 Respiratory Rate 18 11/29/16 02:26 Blood Pressure 112/73 11/29/16 02:00 O2 Saturation by Pulse Oximetry 93 11/29/16 02:00 Oxygen Delivery Method Room Air Oxygen Flow Rate 0 Intake and Output 11/28/16 11/29/16 11/30/16 06:59 06:59 06:59 Intake Total 1100 Output Total 1100 Balance 0 HEENT: Mucous membr. moist/pink Lungs: Diminished at Bases Cardiovascular: Regular Rate and Rhythm Abdomen: Soft, Normal Bowel Sounds, Non-Distended, No Tenderness Extremities: No Edema Peripheral Pulses: Dorsalis Pedis (L): 2+, Dorsalis Pedis (R): 2+ Skin: Warm, Dry, Other (2 by 1 cm scab on right knee) Laboratory 11/29/16 05:15 11/29/16 05:15 11/29/16 11/28/16 05:15 21:45 RBC 3.60 L MCHC 31.4 L BUN 32 H Estimated GFR 48 L POC Capillary Glucose 278 H Current Medications: Current meds reviewed in EMR. 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 (3) Diabetes mellitus, type II Qualifiers: Diabetes mellitus complication status: with kidney complications Diabetes mellitus complication detail: with chronic kidney disease Diabetes mellitus medical terminologist insulin use: unspecified alf insulin use status Chronic kidney disease stage: stage 3 (moderate) Qualifier Code: (E11.22) Type 2 diabetes mellitus with diabetic chronic kidney disease Status: ChronicAssessment/Plan: hyperglycemic on admit, on Lantus for past 2 weeks along with oral meds- currently on Lantus and correction Novolog (4) CKD (chronic kidney disease) stage 3, GFR 30-59 ml/min Status: ChronicAssessment/Plan: due to diabetes, Cr at baseline (5) CAD (coronary artery disease) Qualifiers: Coronary Disease-Associated Artery/Lesion type: [place] artery [place] vs. transplanted heart: [place] heart Associated angina: without angina Qualifier Code: (I25.10) Atherosclerotic heart disease of [place] coronary artery without angina pectoris Status: ChronicAssessment/Plan: No sig ST changes, negative enzymes, assessment complicated by dementia- cont. aspirin and metoprolol (6) History of malignant neoplasm of breast Status: ChronicAssessment/Plan: in remission (7) Hyponatremia Status: AcuteAssessment/Plan: mild likely due to HCTZ-will hold and follow (8) Hypertension Qualifiers: Hypertension type: essential hypertension Qualifier Code: (I10) Essential (primary) hypertension Status: ChronicAssessment/Plan: parameters for meds will be ordered, stop HCTZ due to hyponatremia (9) Asymptomatic bacteriuria Status: AcuteAssessment/Plan: Cx pending, no acute treatment needed VTE Prophylaxis: [facility] measures Disposition: anticipate SNF stay
[2016-11-29] MEDS ORDERED: METOPROLOL TARTRATE 50 MG TABLET PO SCH (07:39)
[2016-11-29] MEDS: INSULIN ASPART (DOSE) 100 UNITS/1 ML SUB-Q PRN (07:52)
[2016-11-29] MEDS: DOCUSATE SODIUM 100 MG CAPSULE PO SCH ×3 (08:11→21:12)
[2016-11-29] MEDS: KETOCONAZOLE 2% TP SCH (08:12)
[2016-11-29] MEDS ORDERED: SODIUM CHLORIDE 0.9% 500 ML IV SCH (08:45)
[2016-11-29] MEDS ORDERED: POLYETHYLENE GLYCOL 3350 17 G POWD.SUSP PO SCH (09:00)
[2016-11-29] MEDS ORDERED: ASPIRIN (ENTERIC COATED) 81 MG TABLET.EC PO SCH (09:00)
[2016-11-29] MEDS ORDERED: CEFAZOLIN SODIUM 2 GRAM PREMIX 2 G in Premix (D5W) 100 ml 1 EACH IV PRN (11:20)
--- NOTE | 2016-11-29 11:20 | PDOC43 ---
- Subjective Subjective: Denies Pain Tolerable (Pt has baseline dementia (A and O x 0) and most of the history come from her daughter. Pt has pain with any motion of the left leg. She sustained a fall from standing on Tuesday at [facility]), Denies Chest Pain, Denies Shortness of Breath, Denies Nausea, Denies Vomiting, Denies Fever - Objective Vital Signs Temperature 99.0 F 11/29/16 08:04 Pulse Rate 123 11/29/16 08:04 Respiratory Rate 13 11/29/16 08:04 Blood Pressure 85/55 11/29/16 08:04 O2 Saturation by Pulse Oximetry 91 11/29/16 08:04 Oxygen Delivery Method Room Air Oxygen Flow Rate 0 Laboratory 11/29/16 05:15 11/29/16 05:15 11/29/16 11/29/16 11/28/16 07:42 05:15 21:45 RBC 3.60 L MCHC 31.4 L BUN 32 H Estimated GFR 48 L POC Capillary Glucose 236 H 278 H Active Medication Orders Category Date Time Status Aspirin (Enteric Coated) [Ecotrin] Med 11/29/16 09:00 Active 81 mg PO DAILY Bupropion HCl [Wellbutrin Sr] Med 11/28/16 21:00 Pending 100 mg PO BEDTIME Hydromorphone HCl [Dilaudid] Med 11/28/16 20:33 Active 0.5 - 2 mg IV Q2H PRN Hydromorphone HCl [Dilaudid] Med 11/28/16 20:33 Active 0.5 - 2 mg IV Q2H PRN Hydromorphone HCl [Dilaudid] Med 11/28/16 20:33 Active 0.5 - 2 mg IV Q2H PRN Insulin Glargine (Dose) [Lantus (Dose)] Med 11/28/16 21:00 Active 30 units SUB-Q BEDTIME Ketoconazole [Nizoral 2%] Med 11/29/16 09:00 Active 1 applic TP DAILY Lisinopril [Prinivil] Med 11/30/16 09:00 Active 20 mg PO DAILY Lorazepam [Ativan] Med 11/28/16 20:36 Active 0.25 - 1 mg IV Q2H PRN Metoprolol Tartrate [Lopressor] Med 11/29/16 07:39 Active 50 mg PO BID Polyethylene Glycol 3350 [Miralax] Med 11/29/16 09:00 Active 17 g PO DAILY Sodium Chloride 0.9% Flush [Normal Saline 10ml Flush] Med 11/29/16 01:00 Active 10 ml IV Q8HR Intake and Output 11/27/16 11/28/16 11/29/16 23:59 23:59 23:59 Intake Total 2449 Output Total 1100 Balance 1349 General: Afebrile - Left Lower Extremity Incision: Other (Pt's left leg is shortened and flex, she grossly flexes and extends her toes but does not follow commands.) Capillary Refill: < 3 Seconds - Problems (1) Displaced fracture of left femoral neck Status: Acute - Disposition HD#2 s/p admission for a left hip displaced femoral neck fracture (garden 4) Pt has baseline dementia and relies on her and daughter for her healthcare decisions. The patient currently has a right shoulder proximal humerus fracture being treated non-operatively. I discussed the patient's status with her family. We spoke about non-operative options vs surgery. I do not think the patient will be able to be able to put weight on her leg with her left hip fracture. I think the best option to get her up and ambulating is with a left hip hemiarthroplasty. I explained how this would be performed and attempted to answer the patient's questions today. We spoke about the risk of infection, instabilty, leg length discrepancy, stroke, [place], consfusion and possible . The patient's agreed to proceed with surgery and we will see about setting this up later today.
[2016-11-29] MEDS ORDERED: BUPIVACAINE 0.5% (PRES FREE) 30 ML VIAL ONE (11:38)
[2016-11-29] MEDS ORDERED: SPINAL PROCEDURAL TRAY 1 EACH ONE (11:38)
[2016-11-29] MEDS ORDERED: IV START KIT ONE ×2 (11:38→11:39)
[2016-11-29] MEDS ORDERED: CEFAZOLIN SODIUM 2 GRAM PREMIX 100 ML IV ONE (11:39)
[2016-11-29] MEDS ORDERED: LACTATED RINGERS 1,000 ML ONE (11:39)
[2016-11-29] MEDS ORDERED: FENTANYL 100 MCG/2 ML VIAL ONE ×3 (11:40→15:46)
[2016-11-29] MEDS ORDERED: MIDAZOLAM HCL 5 MG/5 ML VIAL ONE (11:40)
[2016-11-29] MEDS ORDERED: KETAMINE HCL UD SYRINGE 100 MG/2 ML IV ONE (12:36)
[2016-11-29] MEDS ORDERED: PHENYLEPHRINE 10 MG/1 ML (1%) VIAL ONE ×2 (12:57→13:07)
[2016-11-29] MEDS ORDERED: PROPOFOL 20 ML IV ONE ×2 (12:57→15:08)
[2016-11-29] MEDS ORDERED: ONDANSETRON 4 MG/2ML 2 ML VIAL IV PRN ×2 (13:22→16:30)
[2016-11-29] MEDS ORDERED: PROMETHAZINE HCL 25 MG/ML VIAL IM PRN (13:22)
[2016-11-29] MEDS ORDERED: LACTATED RINGERS 1,000 ML IV SCH (13:30)
--- NOTE | 2016-11-29 15:36 | PCMBPN ---
Brief Post Op Note: Date of Procedure: 11/29/16 Preoperative Diagnosis: 1. left hip displaced femoral neck fracture and right proximal humerus fracture (2 weeks old) Postoperative Diagnosis: 1. [Same] Procedure: left hip hemiarthroplasty for displaced femoral neck fracture Surgeon: Fly Neumann MD Assist:Kelechi HAYES Anesthesia: Spinal Findings: as expected, the patient had a posterior approach and a Depuy [place] press-fit stem, press-fit size 3 stem, 45mm head, 09/15 neck Condition: stable vitals, transferred to pacu Complications: None IV Fluids: 1400 mLs of LR Urine Output: 200 mLs Estimated Blood Loss: 150 mLs Tourniquet Time: [N/A] Specimens: [N/A] Implants: Please see above Drains: [N/A] PLAN: WBAT on the LLE. ASA for DVT. Oxycodone for pain control. Ancef x 24 hours post-op.
[2016-11-29] MEDS: FENTANYL 100 MCG/2 ML VIAL IV PRN ×2 (15:52→16:11)
[2016-11-29] MEDS ORDERED: HYDROMORPHONE HCL 1 MG/ML SYRINGE ONE (15:54)
--- NOTE | 2016-11-29 16:22 | RAD ---
PELVIS HISTORY: Status post left total hip arthroplasty. Frontal portable radiograph of the lower pelvis and hips. COMPARISON: 11/28/2016. FINDINGS: POSTPROCEDURAL CHANGE: Status post total hip arthroplasty. ALIGNMENT: Grossly anatomic. FRACTURE: None identified. ADDITIONAL POSTPROCEDURAL FINDINGS: Soft tissue gas. IMPRESSION: Grossly unremarkable immediate post arthroplasty appearance of the left hip.
--- NOTE | 2016-11-29 16:24 | RAD ---
RIGHT SHOULDER 2 VIEWS HISTORY: Follow-up right shoulder fracture. COMPARISONS: 11/11/2016. TECHNIQUE: Frontal and transscapular views of the right shoulder. FRACTURE: Redemonstration of comminuted proximal humeral fracture, shaft demonstrating increase in medial angulation, with residual impaction. No new displaced acute fracture. Inferior subluxation of the humeral head is noted. SOFT TISSUES: Surgical clips compatible with prior axillary dissection. IMPRESSION: Redemonstration of comminuted proximal right humeral fracture, with mild interval angulation of the shaft medially. Subluxation of the humeral head compatible with hemarthrosis. No new displaced acute fracture.
[2016-11-29] MEDS ORDERED: CALCIUM CARBONATE 500 MG TAB.CHEW PO PRN (16:30)
[2016-11-29] MEDS ORDERED: MORPHINE SULFATE 2 MG/ML SYRINGE IV PRN (16:30)
--- NOTE | 2016-11-29 16:36 | CONS ---
Chantal SANTOS : [id number] DATE OF ADMISSION: November 28, 2016 DATE OF CONSULTATION: November 29, 2016 REASON FOR CONSULTATION: Left hip displaced femoral neck fracture. HISTORY OF PRESENT ILLNESS: The patient is an 81-year-old female who is an established patient of mine due to her right proximal humerus fracture. Due to her baseline dementia we opted to treat her right shoulder fracture nonoperatively. Her right shoulder fracture with back on November 11, 2016 and she has been at [facility] since then trying do better with her weightbearing status and balance. Unfortunately on Tuesday she sustained a fall from standing. This resulted in pain on her left side and the family did not see her until Tuesday when they asked that an x-ray be performed due to the fact that any motion left leg caused for pain. An x-ray at the facility showed a fracture and she was transferred to the [place] [facility]. Here she was seen by Dr. Lopez, who admitted the patient due to her left hip displaced femoral neck fracture. I was consulted for a possible evaluation and treatment. I spoke to the patient's and daughter today about her options. She states that she was able to walk fairly well although she had advance dementia and is essentially nonverbal she was walking around okay. She has had no recent fevers or chills, or any pneumonia however she did have this fall resulting in a right proximal humerus fracture. This previous fall was on November 11, 2016. PAST MEDICAL HISTORY: Is significant for: 1. Adult onset diabetes, for which she is on insulin. 2. Chronic kidney disease. 3. Coronary artery disease with a balloon angioplasty performed a number of years ago. 4. She has had a left total knee performed almost 20 years ago. 5. She has a history of ductal breast cancer status post lumpectomy. 6. She has chronic hypertension. 7. Dyslipidemia. 8. Paroxysmal supraclavicular tachycardia. 9. Osteoporosis. 10. Chronic left facial weakness secondary to a history of [place] palsy. ALLERGIES: She has an allergy to SULFA. MEDICATIONS: Include: 1. Enteric-coated aspirin 81 mg daily. 2. Colace. 3. Vicodin every six hours as needed for right shoulder pain. 4. Lorazepam 0.5 mg at bedtime for insomnia. 5. Hydrochlorothiazide. 6. Metformin 500 mg twice a day. 7. Lopressor 50 mg twice a day. 8. Wellbutrin XL 100 mg every morning. PAST SURGICAL HISTORY: Is significant for: 1. Left breast lumpectomy. 2. Left total knee arthroplasty. 3. section times two. 4. Total abdominal hysterectomy. SOCIAL HISTORY: The patient was living with and daughter before she broke her arm. The plan was for the patient to come back to home, however this has yet to occur. The patient has been to her for 65 years. She has two children but their son is and her daughter Cinthia is actively involved in their care. She does not smoke cigarettes. Her primary care provider is Dr. Mcdaniel. PHYSICAL EXAMINATION: GENERAL: The patient is alert and oriented times zero, in no acute distress. Any motion of the left leg causes her pain. HEENT: The patient does have some left facial weakness. She does not respond to my commands when ask her to move her eyes. HEART: Regular rate, no murmur was appreciated. LUNGS: Clear to auscultation bilaterally. ABDOMEN: Soft, NT and non-distended. FOCUSED EXAM OF THE LEFT LOWER EXTREMITY: Demonstrates a leg that is flexed and externally rotated. She can grossly move her toes up and down and circumduct her foot. She said 1 PT pulse. Any motion of the leg with a log roll test causing an extreme amount of pain. She does not localize this to the groin. RADIOGRAPHS: X-rays performed on November 28, 2016, show a displaced [place] 4 femoral neck fracture. There is a normal appearing right hip. No signs of osteopenia. There is complete displacement of the fracture. I did look at her previous right humeral fractures. No updated x-rays have been obtained. She has three or four part proximal humerus valgus impacted fracture. LABORATORIES: The patient's hematocrit is a 33.1. White blood cell count 9.1. Platelets 167. Sodium 131, potassium 4.5, chloride 94, carbon dioxide 28. BUN 32, creatinine 1.1. ASSESSMENT AND PLAN: The patient is an 81-year-old female who was ambulatory who has baseline severe dementia. The patient's family and I talked about her options. Based on her previous ambulatory status I do think that she would be a candidate for surgery, but any surgery for her would be risky secondary to her age and chronic medical problems. I spoke to the patient's family about the risk of infection, wound healing, instability, leg length discrepancy, stroke, heart attack, even more confusion; however I do think that without performing the surgery. It would be unlikely that the patient would be able to get out of bed and ambulate. We spent some time discussing her options. They agreed to suspend the DNR/DNI for this time period and we will go ahead with a planned left hip hemiarthroplasty. Job [id number] CC: [facility]
[2016-11-29] MEDS ORDERED: LORAZEPAM 0.5 MG TABLET PO PRN ×2 (17:08)
[2016-11-29] MEDS: CEFAZOLIN SODIUM 2 GRAM DUPLEX 50 ML IV SCH (21:02)
[2016-11-29] MEDS: OXYCODONE HCL 5 MG TABLET PO PRN (21:04)
[2016-11-29] MEDS: MELATONIN 3 MG TABLET PO SCH ×2 (21:05→21:13)
[2016-11-29] MEDS: METOPROLOL TARTRATE 50 MG TABLET PO SCH ×2 (21:06→21:13)
[2016-11-29] MEDS: ASCORBIC ACID 500 MG TABLET PO SCH (21:12)
[2016-11-29] MEDS ORDERED: LORAZEPAM 2 MG/ML 1ML SDV IV PRN ×2 (21:21→21:23)
[2016-11-29] MEDS: INSULIN GLARGINE (DOSE) 100 UNITS/ML UNIT SUB-Q SCH (21:28)
[2016-11-29] MEDS: METOPROLOL TARTRATE 1 MG/ML 5ML VIAL IV SCH (21:50)
[2016-11-30] MEDS: LACTATED RINGERS 1,000 ML IV SCH ×4 (00:37→23:40)
[2016-11-30] MEDS: HYDROMORPHONE HCL 1 MG/ML SYRINGE IV PRN ×6 (03:06→21:13)
[2016-11-30] MEDS: CEFAZOLIN SODIUM 2 GRAM DUPLEX 50 ML IV SCH ×2 (04:21→12:17)
[2016-11-30] MEDS: METOPROLOL TARTRATE 1 MG/ML 5ML VIAL IV SCH ×4 (04:21→22:00)
[2016-11-30 05:54] LABS: HEMATOCRIT 29.2 % (37.0-47.0); HEMOGLOBIN 9.3 gm/l (12.0-16.0); MEAN CELL VOLUME 92.7 fl (81.0-99.0); MEAN CORPUSCULAR HEMOGLOBIN 29.5 pg (27.0-31.0); MEAN CORPUSCULAR HGB CONC 31.8 g/dl (33.0-37.0); RED CELL DISTRIBUTION WIDTH 13.1 % (11.5-14.5)
[2016-11-30 06:23] LABS: CALCIUM 8.2 mg/dL (8.6-10.3)
[2016-11-30] MEDS: INSULIN ASPART (DOSE) 100 UNITS/1 ML SUB-Q PRN ×2 (08:07→10:54)
[2016-11-30] MEDS: DOCUSATE SODIUM 100 MG CAPSULE PO SCH ×2 (08:34→21:13)
[2016-11-30] MEDS: ASCORBIC ACID 500 MG TABLET PO SCH ×2 (08:34→21:14)
[2016-11-30] MEDS: ASPIRIN (ENTERIC COATED) 325 MG TABLET.EC PO SCH (08:34)
[2016-11-30] MEDS: MULTIVITAMINS 1 TAB TABLET PO SCH (08:34)
[2016-11-30] MEDS: LISINOPRIL 20 MG TABLET PO SCH (08:34)
[2016-11-30] MEDS: METOPROLOL TARTRATE 50 MG TABLET PO SCH ×2 (08:34→21:14)
[2016-11-30] MEDS: GLYBURIDE 5 MG TABLET PO SCH (08:34)
[2016-11-30] MEDS: KETOCONAZOLE 2% TP SCH (08:38)
[2016-11-30] MEDS ORDERED: LISINOPRIL 20 MG TABLET PO SCH (09:00)
--- NOTE | 2016-11-30 09:05 | PDOC43 ---
- Subjective Findings: Pt seen this morning. S/P Left hip allison arthroplasty for fx. She also has Right proximal humerus fx. Pt has dementia. She is in bed awake unable to communicate her disposition at this time. - Objective Vital Signs Temperature 98.0 F 11/30/16 08:02 Pulse Rate 127 11/30/16 08:02 Respiratory Rate 21 11/30/16 08:02 Blood Pressure 119/57 11/30/16 08:02 O2 Saturation by Pulse Oximetry 100 11/30/16 08:02 Oxygen Delivery Method Nasal Cannula Oxygen Flow Rate 3 Laboratory 11/30/16 05:30 11/30/16 05:30 11/30/16 11/30/16 11/29/16 07:05 05:30 21:27 RBC 3.15 L MCHC 31.8 L POC Capillary Glucose 212 H 200 H Calcium 8.2 L 11/29/16 11/29/16 15:37 11:37 RBC MCHC POC Capillary Glucose 175 H 159 H Calcium Active Medication Orders Category Date Time Status Ascorbic Acid [Vitamin C] Med 11/29/16 21:00 Active 500 mg PO BID Aspirin (Enteric Coated) [Ecotrin] Med 11/30/16 09:00 Active 325 mg PO DAILY Bisacodyl [Dulcolax] Med 12/02/16 15:45 Active 10 mg [place] DAILY PRN Bupropion HCl [Wellbutrin Sr] Med 11/28/16 21:00 Hold 100 mg PO BEDTIME Calcium Carbonate [Tums] Med 11/29/16 16:30 Active 1,000 - 2,000 mg PO Q2H PRN Cefazolin Sodium 2 Gram Duplex [Ancef 2 Gram Duplex] 50 Med 11/29/16 20:30 Active ml IV Q8H Docusate Sodium [Colace] Med 11/29/16 21:00 Active 100 mg PO BID Glyburide [Diabeta] Med 11/30/16 09:00 Active 5 mg PO DAILY Hydromorphone HCl [Dilaudid] Med 11/29/16 18:03 Active 1 mg IV Q3H PRN Insulin Aspart (Dose) [Novolog (Dose)] Med 11/29/16 17:11 Active See Protocol SUB-Q WM/BEDTIME PRN Insulin Glargine (Dose) [Lantus (Dose)] Med 11/29/16 21:00 Active 30 units SUB-Q 2100 Ketoconazole [Nizoral 2%] Med 11/29/16 09:00 Active 1 applic TP DAILY Lactated Ringers 1,000 ml Med 11/29/16 16:30 Active IV 125 mls/hr Lisinopril [Prinivil] Med 11/30/16 09:00 Active 20 mg PO DAILY Lorazepam [Ativan] Med 11/29/16 21:21 Active 0.5 mg IV BEDTIME PRN Lorazepam [Ativan] Med 11/29/16 21:23 Active 0.5 mg IV BID PRN Lorazepam [Ativan] Med 11/29/16 17:08 Active 0.5 mg PO BEDTIME PRN Lorazepam [Ativan] Med 11/29/16 17:08 Active 0.5 mg PO BID PRN Magnesium Hydroxide [Milk of Magnesia] Med 11/30/16 15:45 Active 30 ml PO DAILY PRN Melatonin Med 11/29/16 21:00 Active 9 mg PO BEDTIME Metoprolol Tartrate [Lopressor] Med 11/29/16 21:41 Active 2.5 mg IV Q6H Metoprolol Tartrate [Lopressor] Med 11/29/16 21:00 Active 50 mg PO BID Multivitamins [One-A-Day] Med 11/30/16 09:00 Active 1 tab PO DAILY Ondansetron 4 mg/2ml Vial [Zofran] Med 11/29/16 16:30 Active 4 - 6 mg IV Q6H PRN Oxycodone HCl [Roxicodone] Med 11/29/16 16:30 Active 5 - 10 mg PO Q4H PRN Sodium Chloride 0.9% Flush [Normal Saline 10ml Flush] Med 11/29/16 16:30 Active 10 - 50 ml IV PRN PRN Sodium Chloride 0.9% Flush [Normal Saline 10ml Flush] Med 11/30/16 01:00 Active 10 ml IV Q8HR Intake and Output 11/28/16 11/29/16 11/30/16 23:59 23:59 23:59 Intake Total 4438 1483 Output Total 2225 800 Balance 2224 683 General: Afebrile Lungs: Normal Air Movement Neurological: No Oriented x 4, No Normal Speech - Left Lower Extremity Motion: Pt verbally communicates displeasure by screaming with any attempts to exam both LE and UE. Unable to follow commands for motion of LE. Foot is warm with 1+ pulse DP. Pt in wedge pillow - Problems (1) History of hemiarthroplasty of left hip Status: AcuteAssessment/Plan: Pod #1 1. Physical Therapy:Will be hard to mobilize secondary to Right UE humerus fx 2. Pain Control:Per Dr. Neumann orders 3. DVT Prophylaxis: ASA 325mg QD 4. Disposition:Fair 5. Medical Issues:Management per hospitalist. Appreciate the care and consult. Acute blood loss anemia Will monitor and repeat H/H in the am - Disposition HD#3 s/p admission for a left hip displaced femoral neck fracture (garden 4) Pt has baseline dementia and relies on her and daughter for her healthcare decisions. The patient currently has a right shoulder proximal humerus fracture being treated non-operatively. I discussed the patient's status with her family. We spoke about non-operative options vs surgery. I do not think the patient will be able to be able to put weight on her leg with her left hip fracture. I think the best option to get her up and ambulating is with a left hip hemiarthroplasty. I explained how this would be performed and attempted to answer the patient's questions today. We spoke about the risk of infection, instabilty, leg length discrepancy, stroke, [place], consfusion and possible . The patient's agreed to proceed with surgery and we will see about setting this up later today.
--- NOTE | 2016-11-30 11:29 | PDOC43 ---
- Subjective Chief Complaint: Left hip pain Subjective: Reports Other (difficult to assess due to periodic screaming at baseline and generally doesn't verbalize her needs) - Objective Vital Signs Temperature 98.0 F 11/30/16 08:02 Pulse Rate 127 11/30/16 08:02 Respiratory Rate 21 11/30/16 08:02 Blood Pressure 119/57 11/30/16 08:02 O2 Saturation by Pulse Oximetry 100 11/30/16 08:02 Oxygen Delivery Method Nasal Cannula Oxygen Flow Rate 3 Intake and Output 11/29/16 11/30/16 12/01/16 06:59 06:59 06:59 Intake Total 1100 4832 Output Total 1100 1925 Balance 0 2907 General: Alert, Moderate Distress HEENT: Other (dry oral mucosa) Lungs: Clear to Auscultation Bilaterally Cardiovascular: Other (regular tachycardia) Abdomen: Soft, Normal Bowel Sounds, Non-Distended, No Tenderness Extremities: No Edema Skin: Warm, Dry, Intact Wound: Dressing Clean/Dry/Intact Laboratory 11/30/16 05:30 11/30/16 05:30 11/30/16 11/30/16 11/30/16 10:49 07:05 05:30 RBC 3.15 L MCHC 31.8 L POC Capillary Glucose 212 H 212 H Calcium 8.2 L 11/29/16 11/29/16 11/29/16 21:27 15:37 11:37 RBC MCHC POC Capillary Glucose 200 H 175 H 159 H Calcium Current Medications: Current meds reviewed in EMR. 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 (3) Diabetes mellitus, type II Qualifiers: Diabetes mellitus complication status: with kidney complications Diabetes mellitus complication detail: with chronic kidney disease Diabetes mellitus data programmer insulin use: unspecified data programmer insulin use status Chronic kidney disease stage: stage 3 (moderate) Qualifier Code: (E11.22) Type 2 diabetes mellitus with diabetic chronic kidney disease Status: ChronicAssessment/Plan: hyperglycemic on admit, on Lantus for past 2 weeks along with oral meds- currently on Lantus and correction Novolog (4) CKD (chronic kidney disease) stage 3, GFR 30-59 ml/min Status: ChronicAssessment/Plan: due to diabetes, Cr at baseline (5) CAD (coronary artery disease) Qualifiers: Coronary Disease-Associated Artery/Lesion type: [place] artery [place] vs. transplanted heart: [place] heart Associated angina: without angina Qualifier Code: (I25.10) Atherosclerotic heart disease of [place] coronary artery without angina pectoris Status: ChronicAssessment/Plan: No sig ST changes, negative enzymes, assessment complicated by dementia- cont. aspirin and metoprolol (6) History of malignant neoplasm of breast Status: ChronicAssessment/Plan: in remission (7) Hyponatremia Status: AcuteAssessment/Plan: mild likely due to HCTZ-will hold and follow (8) Hypertension Qualifiers: Hypertension type: essential hypertension Qualifier Code: (I10) Essential (primary) hypertension Status: ChronicAssessment/Plan: parameters for meds will be ordered, stop HCTZ due to hyponatremia (9) Asymptomatic bacteriuria Status: AcuteAssessment/Plan: Cx negative, no treatment needed (10) Acute blood loss anemia Status: AcuteAssessment/Plan: HGB dropped 11.7-->9.3-will follow (11) Tachycardia Status: AcuteAssessment/Plan: suspect primarily due to anxiety and small contribution from hypovolemia, has good urine output- cont IVF and follow VTE Prophylaxis: mech measures plus aspirin Disposition: anticipate SNF stay
[2016-11-30] MEDS ORDERED: MAGNESIUM HYDROXIDE 30 ML UDCUP PO PRN (15:45)
[2016-11-30] MEDS: BUPROPION 100 MG PO SCH (21:14)
[2016-11-30] MEDS: MELATONIN 3 MG TABLET PO SCH (21:14)
[2016-11-30] MEDS ORDERED: INSULIN GLARGINE (DOSE) 100 UNITS/ML UNIT SUB-Q SCH (21:35)
[2016-11-30] MEDS ORDERED: ACETAMINOPHEN 325 MG TABLET PO PRN (22:06)
[2016-11-30] MEDS ORDERED: ACETAMINOPHEN 650 MG SUP PR PRN (22:06)
[2016-11-30] MEDS: INSULIN GLARGINE (DOSE) 100 UNITS/ML UNIT SUB-Q SCH (22:07)
[2016-11-30] MEDS ORDERED: SODIUM CHLORIDE 0.9% 500 ML IV SCH (22:15)
--- NOTE | 2016-11-30 22:52 | PDOC36 ---
Provider Note Subject: patient with fever-CXR shows left basilar infiltrate possible effusion-suspect hospital acquired pneumonia with possible aspiration, will start Zosyn, UA pending
[2016-11-30 23:21] LABS: URINE BILIRUBIN NEGATIVE (NEGATIVE); URINE BLOOD 3+ (NEGATIVE); URINE GLUCOSE (UA) NEGATIVE (NEGATIVE); URINE LEUKOCYTE ESTERASE TRACE (NEGATIVE); URINE NITRITE NEGATIVE (NEGATIVE); URINE PROTEIN 1+ (NEGATIVE); URINE UROBILINOGEN NORMAL (0-1 mg/dl)
[2016-11-30 23:24] LABS: URINE APPEARANCE CLEAR; URINE COLOR DARK YELLOW
[2016-11-30] MEDS ORDERED: PIPERACILLIN SODIUM/TAZOBACTAM 3.375 G VIAL IV ONE (23:27)
[2016-11-30] MEDS ORDERED: SODIUM CHLORIDE 0.9% 50 ML IV ONE (23:46)
[2016-11-30 23:49] LABS: URINE RBC 0-2 /hpf
[2016-11-30 23:50] LABS: URINE BACTERIA 1+
[2016-11-30] MEDS: PIPERACILLIN-TAZO PREMIX BAG 3.375 G in Premix (D5W) 50 ml 1 EACH IV SCH (23:58)
[2016-12-01] MEDS ORDERED: PIPERACILLIN-TAZO PREMIX BAG 50 ML IV ONE (05:49)
[2016-12-01 06:18] LABS: HEMATOCRIT 26.8 % (37.0-47.0); HEMOGLOBIN 8.4 gm/l (12.0-16.0); MEAN CELL VOLUME 93.1 fl (81.0-99.0); MEAN CORPUSCULAR HEMOGLOBIN 29.2 pg (27.0-31.0); MEAN CORPUSCULAR HGB CONC 31.3 g/dl (33.0-37.0); RED CELL DISTRIBUTION WIDTH 13.3 % (11.5-14.5)
[2016-12-01 06:26] LABS: CALCIUM 8.1 mg/dL (8.6-10.3)
[2016-12-01] MEDS: METOPROLOL TARTRATE 1 MG/ML 5ML VIAL IV SCH ×4 (07:52→21:19)
[2016-12-01] MEDS: PIPERACILLIN-TAZO PREMIX BAG 3.375 G in Premix (D5W) 50 ml 1 EACH IV SCH ×3 (07:52→17:21)
--- NOTE | 2016-12-01 08:22 | RAD ---
Exam: Portable chest COMPARISON: 11/28/2016 INDICATION: Postop fever. FINDINGS: A semierect AP, rotated portable view of the chest demonstrates low lung volumes. Cardiac silhouette remains mildly prominent. There is new retrocardiac opacity along the hemidiaphragm and some blunting of left costophrenic angle. Right lung remains clear. Recently described proximal right humerus fracture is noted. Surgical clips are again noted within the axilla. IMPRESSION: New left basilar pleural-parenchymal disease when compared with examination 2 days ago. Whether this simply reflects atelectasis or pneumonia with a tiny pleural effusion is uncertain.
[2016-12-01] MEDS: OXYCODONE HCL 5 MG TABLET PO PRN (08:49)
[2016-12-01] MEDS: LACTATED RINGERS 1,000 ML IV SCH ×2 (08:49→17:21)
[2016-12-01] MEDS: LISINOPRIL 20 MG TABLET PO SCH (09:44)
[2016-12-01] MEDS: GLYBURIDE 5 MG TABLET PO SCH (10:10)
[2016-12-01] MEDS: METOPROLOL TARTRATE 50 MG TABLET PO SCH ×2 (10:10→20:56)
[2016-12-01] MEDS: ASPIRIN (ENTERIC COATED) 325 MG TABLET.EC PO SCH (10:10)
[2016-12-01] MEDS: DOCUSATE SODIUM 100 MG CAPSULE PO SCH ×2 (10:10→20:55)
[2016-12-01] MEDS: ASCORBIC ACID 500 MG TABLET PO SCH ×2 (10:11→21:21)
[2016-12-01] MEDS: MULTIVITAMINS 1 TAB TABLET PO SCH (10:11)
[2016-12-01] MEDS: HYDROMORPHONE HCL 1 MG/ML SYRINGE IV PRN ×5 (10:42→21:20)
[2016-12-01] MEDS ORDERED: PUMP TUBING ONE (11:42)
--- NOTE | 2016-12-01 11:57 | PDOC43 ---
- Subjective Chief Complaint: Left hip pain Subjective: Reports Fever (upt to 101 last night), Denies Tolerating Diet Well ( minimal PO intake) - Objective Vital Signs Temperature 98.3 F 12/01/16 07:44 Pulse Rate 120 12/01/16 07:44 Respiratory Rate 20 12/01/16 07:44 Blood Pressure 112/51 12/01/16 07:44 O2 Saturation by Pulse Oximetry 97 12/01/16 08:45 Oxygen Delivery Method Nasal Cannula Oxygen Flow Rate 2 Intake and Output 11/30/16 12/01/16 12/02/16 06:59 06:59 06:59 Intake Total 4832 1389 2334 Output Total 1925 500 Balance 2907 889 2334 General: Alert, Other (screaming periodically and does not answer questions) HEENT: Mucous membr. moist/pink Lungs: Diminished at Bases Cardiovascular: Other (reg tachy) Abdomen: Soft, Normal Bowel Sounds, Non-Distended, No Tenderness Extremities: No Edema Wound: Dressing Clean/Dry/Intact Laboratory 12/01/16 05:30 12/01/16 05:30 12/01/16 11/30/16 05:30 16:08 RBC 2.88 L MCHC 31.3 L POC Capillary Glucose 154 H Calcium 8.1 L Current Medications: Current meds reviewed in EMR. 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, 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 (3) Diabetes mellitus, type II Qualifiers: Diabetes mellitus complication status: with kidney complications Diabetes mellitus complication detail: with chronic kidney disease Diabetes mellitus mcfp insulin use: unspecified mcfp insulin use status Chronic kidney disease stage: stage 3 (moderate) Qualifier Code: (E11.22) Type 2 diabetes mellitus with diabetic chronic kidney disease Status: ChronicAssessment/Plan: hyperglycemic on admit, on Lantus for past 2 weeks along with oral meds, blood sugars now dropping due to lack of oral intake-adjusting Lantus and correction Novolog (4) CKD (chronic kidney disease) stage 3, GFR 30-59 ml/min Status: ChronicAssessment/Plan: due to diabetes, Cr at baseline (5) CAD (coronary artery disease) Qualifiers: Coronary Disease-Associated Artery/Lesion type: [place] artery [place] vs. transplanted heart: [place] heart Associated angina: without angina Qualifier Code: (I25.10) Atherosclerotic heart disease of [place] coronary artery without angina pectoris Status: ChronicAssessment/Plan: No sig ST changes, negative enzymes, assessment complicated by dementia- cont. aspirin and metoprolol (6) History of malignant neoplasm of breast Status: ChronicAssessment/Plan: in remission (7) Hyponatremia Status: AcuteAssessment/Plan: mild likely due to HCTZ-will hold and follow (8) Hypertension Qualifiers: Hypertension type: essential hypertension Qualifier Code: (I10) Essential (primary) hypertension Status: ChronicAssessment/Plan: parameters for meds will be ordered, stop HCTZ due to hyponatremia (9) Asymptomatic bacteriuria Status: AcuteAssessment/Plan: Cx negative, no treatment needed (10) Acute blood loss anemia Status: AcuteAssessment/Plan: HGB dropped 11.7-->9.3-->8.4-will follow (11) Tachycardia Status: AcuteAssessment/Plan: probably from pneumonia (12) Pneumonia Qualifiers: Pneumonia type: due to unspecified organism Laterality: left Lung location: lower lobe of lung Qualifier Code: (J18.1) Lobar pneumonia, unspecified organism Status: AcuteAssessment/Plan: suspect aspiration, healthcare associated pneumonia, started Zosyn on 11/30 in PM -will follow (13) Anorexia Status: AcuteAssessment/Plan: due to acute illness and dementia-ST eval, daughter aware that patient will not survive unless resumes eating soon, no tube feeding desired per POLST VTE Prophylaxis: mech measures plus aspirin Disposition: anticipate SNF stay
[2016-12-01] MEDS ORDERED: LORAZEPAM 2 MG/ML 1ML SDV IV PRN (13:26)
--- NOTE | 2016-12-01 13:29 | PDOC36 ---
Provider Note Subject: Pain control concern Note: Pt not taking PO well. Spoke with family, family very interested in havin good pain ctrl, being more focused on comfort, as pt is calling out in discomfort. Would like to increase med - plan start duragesic patch and increase frequency of ativan IV and dilaudid.
[2016-12-01] MEDS ORDERED: FENTANYL PATCH 25 MCG/72 HR 1 EACH TD SCH (13:30)
--- NOTE | 2016-12-01 14:03 | PDOC43 ---
- Subjective Subjective: Reports Other (patient is sleeping but aroused when I look at her arm and leg. She begins screaming.) - Objective Vital Signs Temperature 99.9 F 12/01/16 12:16 Pulse Rate 114 12/01/16 12:16 Respiratory Rate 18 12/01/16 12:16 Blood Pressure 109/62 12/01/16 12:16 O2 Saturation by Pulse Oximetry 94 12/01/16 12:16 Oxygen Delivery Method Nasal Cannula Oxygen Flow Rate 2 Laboratory 12/01/16 05:30 12/01/16 05:30 12/01/16 11/30/16 05:30 16:08 RBC 2.88 L MCHC 31.3 L POC Capillary Glucose 154 H Calcium 8.1 L Active Medication Orders Category Date Time Status Acetaminophen [Tylenol] Med 11/30/16 22:06 Active 325 - 650 mg PO Q4H PRN Acetaminophen [Tylenol] Med 11/30/16 22:06 Active 650 mg [place] Q4-6H PRN Ascorbic Acid [Vitamin C] Med 11/29/16 21:00 Active 500 mg PO BID Aspirin (Enteric Coated) [Ecotrin] Med 11/30/16 09:00 Active 325 mg PO DAILY Bisacodyl [Dulcolax] Med 12/02/16 15:45 Active 10 mg VA DAILY PRN Bupropion HCl [Wellbutrin Sr] Med 11/30/16 21:00 Active 150 mg PO BEDTIME Calcium Carbonate [Tums] Med 11/29/16 16:30 Active 1,000 - 2,000 mg PO Q2H PRN Docusate Sodium [Colace] Med 11/29/16 21:00 Active 100 mg PO BID Fentanyl Patch 25 Mcg/72 Hr [Duragesic 25] Med 12/01/16 13:30 Ordered 1 each TD Q72H Glyburide [Diabeta] Med 11/30/16 09:00 Active 5 mg PO DAILY Hydromorphone HCl [Dilaudid] Med 12/01/16 13:26 Active 1 mg IV Q2H PRN Insulin Aspart (Dose) [Novolog (Dose)] Med 11/29/16 17:11 Active See Protocol SUB-Q WM/BEDTIME PRN Insulin Glargine (Dose) [Lantus (Dose)] Med 11/30/16 21:35 Active 20 units SUB-Q DAILY@2100 Ketoconazole [Nizoral 2%] Med 11/29/16 09:00 Active 1 applic TP DAILY Lactated Ringers 1,000 ml Med 11/29/16 16:30 Active IV 125 mls/hr Lisinopril [Prinivil] Med 11/30/16 09:00 Active 20 mg PO DAILY Lorazepam [Ativan] Med 11/29/16 21:21 Active 0.5 mg IV BEDTIME PRN Lorazepam [Ativan] Med 12/01/16 13:26 Active 0.5 mg IV Q6H PRN Lorazepam [Ativan] Med 11/29/16 17:08 Active 0.5 mg PO BEDTIME PRN Lorazepam [Ativan] Med 11/29/16 17:08 Active 0.5 mg PO BID PRN Magnesium Hydroxide [Milk of Magnesia] Med 11/30/16 15:45 Active 30 ml PO DAILY PRN Melatonin Med 11/29/16 21:00 Active 9 mg PO BEDTIME Metoprolol Tartrate [Lopressor] Med 11/29/16 21:41 Active 2.5 mg IV Q6H Metoprolol Tartrate [Lopressor] Med 11/29/16 21:00 Active 50 mg PO BID Multivitamins [One-A-Day] Med 11/30/16 09:00 Active 1 tab PO DAILY Ondansetron 4 mg/2ml Vial [Zofran] Med 11/29/16 16:30 Active 4 - 6 mg IV Q6H PRN Oxycodone HCl [Roxicodone] Med 11/29/16 16:30 Active 5 - 10 mg PO Q4H PRN Piperacillin-Tazo Premix Bag [Zosyn 3.375 G] 3.375 g Med 12/01/16 00:00 Active Premix (D5W) 50 ml 1 each IV Q6HR Sodium Chloride 0.9% Flush [Normal Saline 10ml Flush] Med 11/29/16 16:30 Active 10 - 50 ml IV PRN PRN Sodium Chloride 0.9% Flush [Normal Saline 10ml Flush] Med 11/30/16 01:00 Active 10 ml IV Q8HR Intake and Output 11/29/16 11/30/16 12/01/16 23:59 23:59 23:59 Intake Total 4417 0862 2334 Output Total 2225 1300 Balance 2224 1572 2334 Lungs: Normal Air Movement Neurological: Other Psych/Mental Status: Other (difficult to assess her pain due to crying out and her dementia) - Right Upper Extremity Incision: Other (arm in sling) - Left Lower Extremity Capillary Refill: < 3 Seconds Motion: I am able to flex her knee to 30 degrees. Post op dressing remains in place. - Disposition HD#4 s/p admission for a left hip displaced femoral neck fracture (garden 4); left hip hemiarthroplasty; right proximal humerus fracture, 3 part PT will continue knee and hip passive ROM. She may WBAT LLE with walker and assistance but this will be limited by her dementia Pain control DVT prophylaxis Appreciate IM following patient--patient has developed fever and may have pneumonia per IM.
[2016-12-01] MEDS ORDERED: FENTANYL TD SCH (14:30)
[2016-12-01] MEDS: KETOCONAZOLE 2% TP SCH (16:01)
[2016-12-01] MEDS: MELATONIN 3 MG TABLET PO SCH (20:56)
[2016-12-01] MEDS ORDERED: INSULIN GLARGINE (DOSE) 100 UNITS/ML UNIT SUB-Q SCH (21:00)
[2016-12-01] MEDS: BUPROPION 100 MG PO SCH (21:22)
[2016-12-02] MEDS: HYDROMORPHONE HCL 1 MG/ML SYRINGE IV PRN ×5 (00:22→10:53)
[2016-12-02] MEDS: PIPERACILLIN-TAZO PREMIX BAG 3.375 G in Premix (D5W) 50 ml 1 EACH IV SCH ×2 (00:22→05:05)
[2016-12-02] MEDS ORDERED: DEXTROSE 50%-WATER 25 G SYRINGE IV PRN (00:44)
[2016-12-02] MEDS ORDERED: D5 1/2NS with 20 mEq KCL 1,000 ML IV SCH (00:45)
[2016-12-02] MEDS: LACTATED RINGERS 1,000 ML IV SCH ×2 (02:29→22:48)
[2016-12-02] MEDS: METOPROLOL TARTRATE 1 MG/ML 5ML VIAL IV SCH ×2 (04:34→10:04)
[2016-12-02 07:08] VITALS: BP 90/46
[2016-12-02] MEDS: DOCUSATE SODIUM 100 MG CAPSULE PO SCH (10:03)
[2016-12-02] MEDS: ASPIRIN (ENTERIC COATED) 325 MG TABLET.EC PO SCH (10:04)
[2016-12-02] MEDS: GLYBURIDE 5 MG TABLET PO SCH (10:04)
[2016-12-02] MEDS: METOPROLOL TARTRATE 50 MG TABLET PO SCH (10:04)
[2016-12-02] MEDS: ASCORBIC ACID 500 MG TABLET PO SCH (10:05)
[2016-12-02] MEDS: MULTIVITAMINS 1 TAB TABLET PO SCH (10:05)
[2016-12-02] MEDS: LISINOPRIL 20 MG TABLET PO SCH (10:05)
--- NOTE | 2016-12-02 10:08 | PDOC43 ---
- Subjective Findings: Ortho Hospital day 4 and s/p L hip hemiarthroplasty, conservative management of R proximal humerus fx: Patient sleeping but easily aroused but inappropriate at baseline in response with severe dementia. No response verbally to questions but moans with physical contact. Did squeeze my hand with her right. Moving lower extremities. - Objective Vital Signs Temperature 98.9 F 12/02/16 07:04 Pulse Rate 115 12/02/16 07:04 Respiratory Rate 19 12/02/16 07:04 Blood Pressure 90/46 12/02/16 07:04 O2 Saturation by Pulse Oximetry 94 12/02/16 07:04 Oxygen Delivery Method Nasal Cannula Oxygen Flow Rate 2 Laboratory 12/01/16 05:30 12/01/16 05:30 12/02/16 12/02/16 12/02/16 06:23 02:41 01:36 POC Capillary Glucose 130 H 113 H 131 H 12/02/16 00:27 POC Capillary Glucose 65 L Active Medication Orders Category Date Time Status Acetaminophen [Tylenol] Med 11/30/16 22:06 Active 325 - 650 mg PO Q4H PRN Acetaminophen [Tylenol] Med 11/30/16 22:06 Active 650 mg AL Q4-6H PRN Ascorbic Acid [Vitamin C] Med 11/29/16 21:00 Active 500 mg PO BID Aspirin (Enteric Coated) [Ecotrin] Med 11/30/16 09:00 Active 325 mg PO DAILY Bisacodyl [Dulcolax] Med 12/02/16 15:45 Active 10 mg AL DAILY PRN Bupropion HCl [Wellbutrin Sr] Med 11/30/16 21:00 Active 150 mg PO BEDTIME Calcium Carbonate [Tums] Med 11/29/16 16:30 Active 1,000 - 2,000 mg PO Q2H PRN D5 1/2NS with 20 mEq KCL [D51/2NS with 20 mEq KCL] 1, Med 12/02/16 00:45 Active 000 ml IV 75 mls/hr Dextrose 50%-Water [Dextrose (D50) Abboject] Med 12/02/16 00:44 Active 12.5 g IV Q1H PRN Docusate Sodium [Colace] Med 11/29/16 21:00 Active 100 mg PO BID Fentanyl Patch 12 Mcg/72 Hr [Duragesic 12] Med 12/01/16 14:30 Active 1 each TD Q72H Glyburide [Diabeta] Med 11/30/16 09:00 Active 5 mg PO DAILY Hydromorphone HCl [Dilaudid] Med 12/01/16 13:26 Active 1 mg IV Q2H PRN Insulin Aspart (Dose) [Novolog (Dose)] Med 11/29/16 17:11 Active See Protocol SUB-Q WM/BEDTIME PRN Insulin Glargine (Dose) [Lantus (Dose)] Med 12/01/16 21:00 Active 10 units SUB-Q DAILY@2100 Ketoconazole [Nizoral 2%] Med 11/29/16 09:00 Active 1 applic TP DAILY Lactated Ringers 1,000 ml Med 11/29/16 16:30 Active IV 125 mls/hr Lisinopril [Prinivil] Med 11/30/16 09:00 Active 20 mg PO DAILY Lorazepam [Ativan] Med 12/01/16 13:26 Active 0.5 mg IV Q6H PRN Magnesium Hydroxide [Milk of Magnesia] Med 11/30/16 15:45 Active 30 ml PO DAILY PRN Melatonin Med 11/29/16 21:00 Active 9 mg PO BEDTIME Metoprolol Tartrate [Lopressor] Med 11/29/16 21:41 Active 2.5 mg IV Q6H Metoprolol Tartrate [Lopressor] Med 11/29/16 21:00 Active 50 mg PO BID Multivitamins [One-A-Day] Med 11/30/16 09:00 Active 1 tab PO DAILY Ondansetron 4 mg/2ml Vial [Zofran] Med 11/29/16 16:30 Active 4 - 6 mg IV Q6H PRN Oxycodone HCl [Roxicodone] Med 11/29/16 16:30 Active 5 - 10 mg PO Q4H PRN Piperacillin-Tazo Premix Bag [Zosyn 3.375 G] 3.375 g Med 12/01/16 00:00 Active Premix (D5W) 50 ml 1 each IV Q6HR Sodium Chloride 0.9% Flush [Normal Saline 10ml Flush] Med 11/29/16 16:30 Active 10 - 50 ml IV PRN PRN Sodium Chloride 0.9% Flush [Normal Saline 10ml Flush] Med 11/30/16 01:00 Active 10 ml IV Q8HR Intake and Output 11/30/16 12/01/16 12/02/16 23:59 23:59 23:59 Intake Total 2872 8308 1279 Output Total 8539 804 550 Balance 1572 7300 729 Neurological: No Alert, No Oriented x 4, No Normal Gait, No Normal Speech Psych/Mental Status: Other (severe dementia), No Normal Affect, No Normal Mood Peripheral Pulses: Right Radial: 1+, Left Posterior Tibialis: 1+, Left Dorsalis Pedis: 1+ - Right Lower Extremity Incision: Well Approximated, No Dressing Saturated, No Shadow Drainage, No Drainage, No Erythema, No Rash, No Milagros Intact (none) Motor: Extensor Hallucis Longus: 4/5 (patient moving without appropriate response to command), Tibialis Anterior: 4/5 (patient moving without appropriate response to command), Gastrocnemius: 4/5 (patient moving without appropriate response to command), Peroneals: 4/5 (patient moving without appropriate response to command), Quadriceps: 4/5 (patient moving without appropriate response to command) Gross Sensation to Light Touch: Present: Deep Peroneal Nerve, Superficial Peroneal Nerve, Medial Plantar Nerve, Lateral Plantar Nerve, Sural Nerve, Saphenous Nerve Motion: Not assessed, severe dementia. - Disposition HD#5 s/p admission for a left hip displaced femoral neck fracture (garden 4); left hip hemiarthroplasty; right proximal humerus fracture, 3 part Continue PT/OT as ordered Continue Pain management, DVT prophylaxis as ordered, call for modification prn. Defer to Hospitalist for medical management and disposition.
--- NOTE | 2016-12-02 10:29 | OP ---
Chantal SANTOS : 1935 [id number] DATE OF PROCEDURE: November 29, 2016 PREOPERATIVE DIAGNOSES: Left hip displaced femoral neck fracture and right proximal humerus fracture which is two weeks old. POSTOPERATIVE DIAGNOSES: Left hip displaced femoral neck fracture and right proximal humerus fracture which is two weeks old. PROCEDURE: LEFT HIP HEMIARTHROPLASTY FOR A DISPLACED LEFT FEMORAL NECK FRACTURE. SURGEON: Fly Neumann M.D. INTERVENTIONAL RADIOLOGY TECH: Zahira Abbott ANESTHESIA: Spinal. FINDINGS: As suspected the patient had a displaced femoral neck fracture. This was approached through a posterior approach. Prior to washing the leg the patient did have an allergic reaction, we are not sure as to what. This did improve by the end of the surgery. My incision was between these welts. The patient had a DePuy [place] PressFit femoral stem which was size 3, a 45 mm 0 head, and a neck which was 12 x 14. The patient was placed in an abduction brace due to her baseline dementia. CONDITION: The patient had stable vital signs and transferred to the PACU. COMPLICATIONS: None. INTRAVENOUS FLUIDS: 1400 mL of Lactate Ringer's. URINE OUTPUT: 200 mL ESTIMATED BLOOD LOSS: 150 mL SPECIMENS: N/A TOURNIQUET TIME: N/A IMPLANTS: See above. DRAINS: N/A PLAN: The patient will be weight-bearing as tolerated on the left lower extremity. She will try to monitor posterior hip precautions but due to her baseline dementia. This will be difficult. The patient did have a posterior capsular repair. She will be on aspirin for DVT prophylaxis, oxycodone for pain control, Ancef for 24 hours postop. INDICATIONS: The patient is an 81-year-old with end stage dementia who has been prone to falls, in fact she fell 2.5 weeks ago resulting in a proximal humerus fracture. At this point in time the patient was at a rehab facility when she had an unwitnessed fall. The patient was brought to the [facility] two days later when she was diagnosed with a displaced left femoral neck fracture. I spoke to the patient's as well as her daughter about her options. Because she is weight bearing I think treating her with a surgery is reasonable. My recommendation would be a left hip hemiarthroplasty. I spoke to the patient's family about the risks as well as benefits of this surgery. I explained to them that our plan will be to place a left hip hemiarthroplasty. If necessary I will place a cemented component. I spoke to them about performing unipolar hemiarthroplasty. I do think that her baseline dementia is a prohibitive factor for her going home after surgery so I told them that I think that going to a rehab facility may be the best thing for her. However following commands will be very important for the patient, but this will be difficult considering her difficulties. I spoke to them about the risks associated surgery which include, but are not limited to, infection, DVT, post-op confusion, a stroke, myocardial infarction and even . I spoke to them about these risks and after a lengthy description decided to proceed with surgery. PROCEDURE DESCRIPTION: The patient was seen in the preoperative area where she was seen by the anesthesia team. Due to a poor intravenous line the patient did receive some seduction and a new intravenous line was placed in her left hand. We then placed a removable wrist splint on her left hand, so that she would not pull this out. The patient was then moved from the preoperative area after I signed her left leg and confirmed that our proposed procedure matched the consent form. In the operating room the patient received some sedation and had a spinal anesthetic which was done without complication. Next, the patient was placed in a right lateral decubitus position. She was placed on a pegboard with a peg in the front by her pubic symphysis and posteriorly by her iliac crest. Once she was positioned we made sure that all bony prominences were well padded. She had and axillary roll in place. We then noticed prior to prepping that the patient had some welts by her hip. We were not sure the cause of this, I consulted with my partner Dr. Perry. We thought that it would be appropriate to still do a posterior buttock incision, but I elected to go with Betadine and DuraPrep for my prep. The patient's left lower extremity was then prepped and draped in sterile fashion, first with a Betadine scrub, and then prep. At this point with the left leg draped we performed a final time out confirming that the left side was the correct side and that our planned procedure was a left hip hemiarthroplasty with a planned posterior approach. I confirmed that we had the DePuy [place] stem and equipment and that Ancef 2 g had been given approximately 10 minutes before this procedure. At this point in time I carli out my incision along the posterior aspect of the greater trochanter. I then used a #10 blade to incise the skin after it was draped with Ioban. I used a Bovie cautery to gain good hemostasis. I placed a self retraining retractor and dissected down to the IT band. I then opened this up with a deep knife and placed a Charnley retractor splitting the gluteus leslie. With this exposure I found the external rotators. The piriformis was tagged and then the external rotators were taken off as one sleeve. This exposed the capsule which was partially torn. I then took this off as a T capsulotomy. With the capsule then torn I exposed the femoral neck. There was still some jagged femoral neck. I elected to perform a cut. I did this with the leg sitting up in perpendicular position. With the femoral neck cut I had good exposure to remove the femoral head. This was removed without difficulty and measured. I thought 45 mm head would be appropriate. I then trialed this and thought it had a good fit. Next, I proceeded to place an anterior proximal femoral retractor. I used a Cobra around the lesser trochanter and proceeded to use the box cover and the lateralizer and proceeded to ream. I thought that a 3 pool hand had good fit. I elected then to broach up to a 3, which I had a good position. I then elected place a neutral neck a 0 head onto the 3 broach and reduce this. I thought that the patient had a normal shuck test. The hip was stable. I thought that the leg lengths were within normal limits and these were the implants that I would select. The implants were then opened. I then irrigated the canal and placed a 3 stem without incident. Once this had a good press fit. I then placed a unipolar head, reduced the hip making sure that my capsule and rotators were outside of this. I then drilled three holes through the greater trochanter to perform my repair. The leg was placed under tension to allow this to occur. I then irrigated one last time and then closed the IT band with interrupted #2-0 Ethibond and running StrataFix suture. I then closed the subcutaneous tissue with interrupted #0 Vicryl, interrupted #2-0 Vicryl, a running Monocryl suture and Prineo fibrin glue was placed on the hip itself. I think that the patient would be a poor candidate for having long removed. A DSD was applied on the left hip. She was carefully rotated and placed onto the bed. She had an abduction pillow in place to help her maintain posterior hip precautions. The patient will plan to be weight-bearing as tolerated on the left side. In terms of her proximal humerus we continue nonweightbearing on this side and in the PACU we will get postoperative x-rays. I talked to the patient's family discussing the postoperative plan. Job [id number] CC: [facility]
[2016-12-02] MEDS ORDERED: ACETAMINOPHEN 650 MG SUP PR PRN (11:12)
[2016-12-02] MEDS ORDERED: POLYVINYL ALCOHOL 1.4% (TEARS) 300 GTTS/BOT SOLN.DROP OU PRN (11:12)
[2016-12-02] MEDS ORDERED: HALOPERIDOL 1 MG TABLET PO PRN (11:12)
[2016-12-02] MEDS ORDERED: LORAZEPAM 1 MG TABLET SL PRN (11:15)
--- NOTE | 2016-12-02 11:25 | PDOC43 ---
- Subjective Chief Complaint: Left hip pain Failed swallow eval 12/01. Plan to transition to hospice as per family conversation. - Objective Vital Signs Temperature 98.9 F 12/02/16 07:04 Pulse Rate 115 12/02/16 07:04 Respiratory Rate 19 12/02/16 08:00 Blood Pressure 90/46 12/02/16 07:04 O2 Saturation by Pulse Oximetry 94 12/02/16 07:04 Oxygen Delivery Method Nasal Cannula Oxygen Flow Rate 2 Intake and Output 12/01/16 12/02/16 12/03/16 06:59 06:59 06:59 Intake Total 1389 4627 Output Total 500 1310 Balance 889 3317 General: Other (Occ calls ouot. Otherwise unresponsive.) Current Medications: Current meds reviewed in EMR. - Problems: Assessment/Plan (1) Femur fracture, left Qualifiers: Encounter type: initial encounter Femur location: unspecified portion of femur Fracture type: closed Fracture alignment: displaced Status: AcuteAssessment/Plan: S/P L allison 11/30. Now POD #2. Post-op complicated by pna, advanced dementia, aspiration, etc. Plan to transition to hospice as per family conference. (2) Dementia Qualifiers: Dementia type: Alzheimer's disease Alzheimer's disease onset: late- onset Dementia behavioral disturbance: with behavioral disturbance Qualifier Code: (G30.1) Alzheimer's disease with late onset Status: Chronic Assessment/Plan: Advanced-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. Failed swallow eval last night. Plan hospice as above. (3) Pneumonia Qualifiers: Pneumonia type: due to unspecified organism Laterality: left Lung location: lower lobe of lung Qualifier Code: (J18.1) Lobar pneumonia, unspecified organism Status: AcuteAssessment/Plan: Post-op aspiration/HCAP. Zosyn on 11/30 in PM. Plan now to transition to hospice as above. VTE Prophylaxis: None- hospice. Disposition: anticipate d/c home on hospice tomorrow.
--- NOTE | 2016-12-02 11:49 | PDOC43 ---
- Subjective Findings: Pt seen this am for Dr Neumann. Review of chart and discussion was held with DC master planner. Pt has failed swallow test. She is still unable to respond to my questions today. Continues to moan and scream with minimal motion. - Objective Vital Signs Temperature 98.9 F 12/02/16 07:04 Pulse Rate 115 12/02/16 07:04 Respiratory Rate 19 12/02/16 08:00 Blood Pressure 90/46 12/02/16 07:04 O2 Saturation by Pulse Oximetry 94 12/02/16 07:04 Oxygen Delivery Method Nasal Cannula Oxygen Flow Rate 2 Laboratory 12/01/16 05:30 12/01/16 05:30 12/02/16 12/02/16 12/02/16 06:23 02:41 01:36 POC Capillary Glucose 130 H 113 H 131 H 12/02/16 00:27 POC Capillary Glucose 65 L Active Medication Orders Category Date Time Status Acetaminophen [Tylenol] Med 12/02/16 11:12 Active 650 mg OK Q6H PRN Bisacodyl [Dulcolax] Med 12/02/16 15:45 Active 10 mg OK DAILY PRN Fentanyl Patch 25 Mcg/72 Hr [Duragesic 25] Med 12/02/16 11:30 Ordered 1 each TD Q72H Haloperidol [Haldol] Med 12/02/16 11:12 Active 1 mg PO Q1H PRN Hydromorphone HCl [Dilaudid] Med 12/01/16 13:26 Active 1 mg IV Q2H PRN Lorazepam [Ativan] Med 12/01/16 13:26 Active 0.5 mg IV Q6H PRN Lorazepam [Ativan] Med 12/02/16 11:15 Active 1 mg SL Q1H PRN Morphine Sulfate [Roxanol] Med 12/02/16 11:12 Active 5 - 20 mg PO Q1H PRN Ondansetron 4 mg/2ml Vial [Zofran] Med 11/29/16 16:30 Active 4 - 6 mg IV Q6H PRN Polyvinyl Alcohol 1.4% (Tears) [Tears Naturale] Med 12/02/16 11:12 Active 2 gtts OU QID PRN Sodium Chloride 0.9% Flush [Normal Saline 10ml Flush] Med 11/29/16 16:30 Active 10 - 50 ml IV PRN PRN Sodium Chloride 0.9% Flush [Normal Saline 10ml Flush] Med 11/30/16 01:00 Active 10 ml IV Q8HR Intake and Output 11/30/16 12/01/16 12/02/16 23:59 23:59 23:59 Intake Total 2872 3348 1279 Output Total 1300 760 550 Balance 1572 2588 729 General: Afebrile Neurological: No Oriented x 4, No Normal Speech Psych/Mental Status: Other (Pt with baseline dementia unable to respond to questions. Continues to moan and scream out at times) - Right Upper Extremity Incision: Ecchymosis, Other (swelling to the right arm from shoulder to wrist) Capillary Refill: < 3 Seconds - Left Lower Extremity Incision: Dressing Clean/Dry/Intact - Problems (1) History of hemiarthroplasty of left hip Status: AcuteAssessment/Plan: Pod #3 1. Physical Therapy:Will be hard to mobilize secondary to Right UE humerus fx 2. Pain Control:Per Dr. Neumann orders 3. DVT Prophylaxis: ASA 325mg QD 4. Disposition:Pt has failed swallow test and family wishes for hospice consult 5. Medical Issues:Management per hospitalist. Appreciate the care and consult. Probable dc to hospice tomorrow
[2016-12-02] MEDS: MORPHINE SULF Oral Liquid 20 MG/1 ML DOSE PO PRN ×6 (12:15→23:20)
[2016-12-02] MEDS ORDERED: FENTANYL PATCH 25 MCG/72 HR 1 EACH TD SCH (12:15)
[2016-12-02] MEDS ORDERED: BISACODYL 10 MG SUP PR PRN (15:45)
[2016-12-02] MEDS ORDERED: HALOPERIDOL LACTATE 5 MG/1 ML AMP IV PRN (16:17)
[2016-12-02] MEDS: LORAZEPAM 2 MG/ML PO PRN ×3 (16:41→23:18)
[2016-12-02] MEDS ORDERED: IV START KIT ONE (17:20)
[2016-12-02] MEDS ORDERED: SODIUM CHLORIDE 0.9% FLUSH 10 ML ONE (17:20)
[2016-12-02] MEDS: KETOCONAZOLE 2% TP SCH (22:47)
[2016-12-03] MEDS: MORPHINE SULF Oral Liquid 20 MG/1 ML DOSE PO PRN ×2 (04:29→08:47)
[2016-12-03] MEDS: LORAZEPAM 2 MG/ML PO PRN ×2 (04:30→09:55)
[2016-12-03] MEDS ORDERED: SCOPOLAMINE 1.5 MG/72 HR 1 EACH PATCH TD ONE (07:13)
--- NOTE | 2016-12-03 12:57 | DS ---
Chantal Andersen ADMIT DATE: 11/28/2016 DISCHARGE DATE: 12/03/2016 ADMISSION DIAGNOSES: 1. Left femur fracture secondary to ground level fall. 2. Recent right humerus fracture secondary to a ground level fall. 3. Advanced dementia with marked deterioration of her functional ability over the last six months. 4. Stable coronary artery disease. 5. History of breast cancer. 6. Hypertension. DISCHARGE DIAGNOSES: 1. Left femur fracture secondary to ground level fall. 2. Recent right humerus fracture secondary to a ground level fall. 3. Advanced dementia with marked deterioration of her functional ability over the last six months. 4. Stable coronary artery disease. 5. History of breast cancer. 6. Hypertension. 7. Postoperative aspiration pneumonia/healthcare facility acquired pneumonia. 8. Dysphagia postoperatively with desire to avoid feeding tube and transition to hospice. 9. Multiple other medical problems unchanged. ADMIT HISTORY AND PHYSICAL: Please see Dr. Lopez's note for details. Briefly, Mrs. Andersen is a 81-year-old female with known advanced dementia with a marked functional decline in the previous months. She had been admitted to our hospital earlier this month with a ground level fall resulting in a right humerus fracture. On the day of admission she came back in after another fall with a left hip fracture. Her baseline is that she is nonverbal and really unable to provide any other history. In the emergency room she was worked up and found to have a subcapital left hip fracture. It was elected to admit her to the hospitalist service with plans for orthopedic consult. HOSPITAL COURSE: She was admitted. Family conference was held and it was elected to go the operating room to attempt to repair. In spite of her advanced dementia family felt that this may aid in palliation. Please see Dr. Neumann's note for details of the surgery. She did undergo the surgery on 11/29/2016. The surgery itself was uncomplicated, however, in the postoperative period she did not do well. On postoperative day one she developed fever and increased respirations. Chest x-ray revealed bilateral lower lobe pneumonia consistent with healthcare acquired pneumonia. She also as noted to aspirate with any oral intake. It was felt that she was most likely having aspiration pneumonia as well. Swallow evaluation as obtained which showed marked dysphagia with aspiration. Multiple other family conversations were held. The family was very clear that the patient indicated in the past that she did not wish to have any feeding tubes or to be kept alive in this situation. Given the advanced dementia with marked functional decline and now with her inability to safely eat with no desire for a G-tube it was elected after family conversation to transition to hospice and this was done on 12/02/2016. She was then discharged home with hospice on 12/03/2016. DISCHARGE MEDICATIONS: As per hospice as follows: 1. Scopolamine patch 1.5 mg every 72 hours. 2. Haldol 1 mg by mouth every 1 hours as needed for nausea or agitation. 3. Lorazepam oral concentrate 2 mg/mL, 2 mg by mouth every 2 hours as needed for agitation. 4. Roxanol 20 mg/mL 10 to 20 mg by mouth every 1 hour as needed for pain behaviors. 5. Fentanyl patch 25 mcg every 72 hours. DISCHARGE FOLLOW UP: [facility] JOB: [id number] CC: Dr. Mcdaniel
--- NOTE | 2016-12-15 11:26 | DEATH SUM ---
DANIELLEYANNI ADDENDUM TO DISCHARGE SUMMARY OF DECEMBER 03, 2016 DATE OF ADMISSION: November 28, 2016 DATE OF : December 03, 2016 SUMMARY: Please see discharge summary dated December 03, 2016. Briefly, Ms. Andersen is an 81-year-old female who was planned to be discharged on Hospice on December 03, 2016 after a lengthy hospitalization and multiple other chronic medical problems. See admission history and physical as well as discharge summary for details. Shortly after her discharge summary was dictated, however, she did pass in her sleep. This was prior to her actually being transferred from the hospital. Time of was 12:45 p.m. on December 03, 2016.
== END 2016-12-03 15:20 | disposition hospice, home (50) | DRG 469 ==
LOC: ED 17:19 → MS 19:14
PROVIDERS: ADMIT Family Medicine; ATTEND Family Medicine
PROC: 0SRB03A Replacement of Left Hip Joint with Ceramic Synthetic Substitute, Uncemented, Open Approach (ICD-10-PCS; principal; 2016-11-29)
DX: S72.012A Unspecified intracapsular fracture of left femur, initial encounter for closed fracture (principal); J18.9 Pneumonia, unspecified organism; F02.81 Dementia in other diseases classified elsewhere, unspecified severity, with behavioral disturbance; E87.1 Hypo-osmolality and hyponatremia; R78.81 Bacteremia; S42.201A Unspecified fracture of upper end of right humerus, initial encounter for closed fracture; I47.1 Supraventricular tachycardia; G30.1 Alzheimer's disease with late onset; E11.22 Type 2 diabetes mellitus with diabetic chronic kidney disease; N18.3 Chronic kidney disease, stage 3 (moderate); Z79.84 Long term (current) use of oral hypoglycemic drugs; I25.10 Atherosclerotic heart disease of native coronary artery without angina pectoris; Z85.3 Personal history of malignant neoplasm of breast; I12.9 Hypertensive chronic kidney disease with stage 1 through stage 4 chronic kidney disease, or unspecified chronic kidney disease; Y95 Nosocomial condition; R63.0 Anorexia; I51.7 Cardiomegaly; E78.5 Hyperlipidemia, unspecified; H35.30 Unspecified macular degeneration; M81.0 Age-related osteoporosis without current pathological fracture; M51.36 Other intervertebral disc degeneration, lumbar region; G51.0 Bell's palsy; Z66 Do not resuscitate; W19.XXXA Unspecified fall, initial encounter; Y92.019 Unspecified place in single-family (private) house as the place of occurrence of the external cause